=== PATIENT | female | born 1975 | race Two or more races ===

== ENCOUNTER → 2020-08-28 09:22 | Outpatient (BNVA) | payer SELFPAY | PROVIDERS: PCP Pediatrics; Visit Provider Internal Medicine ==

== ENCOUNTER 2020-10-25 06:33 | Outpatient (REF) | payer MEDICAID, SELFPAY ==
[2020-10-25 06:55] LABS: MANUAL DIFF FLAG NO
[2020-10-25 07:05] LABS: Basophils Absolute Auto 0.1 X10*3/uL (0.0-0.2); Basophils Percent Auto 0.7 % (0-2); Eosinophils Absolute Auto 0.2 X10*3/uL (0.0-0.4); Eosinophils Percent Auto 2.3 % (0-4); Hematocrit 38.4 % (37-47); Imm Gran Abs Auto 0.03 X10*3/uL (0.00-0.03); Imm Gran Pct Auto 0.4 % (0.0-0.4); Lymphocytes Absolute Auto 2.6 X10*3/uL (1.2-4.9); Lymphocytes Percent Auto 34.4 % (20-40); Mean Corpuscular HGB Conc 33.9 g/dl (31.0-35.0); Mean Corpuscular Volume 91.4 fL (80-98); Mean Platelet Volume 8.7 fL (9.4-12.3); Monocytes Absolute Auto 0.6 X10*3/uL (0.1-1.2); Monocytes Percent Auto 8.5 % (2-11); Neutrophils Percent Auto 53.7 % (45-73); Platelet Count 357 X10*3/uL (160-400); Red Cell Distribution Width 12.4 % (11.0-16.0); White Blood Count 7.5 X10*3/uL (4.8-10.8)
[2020-10-25 07:07] LABS: Prothrombin Time 11.3 SEC (10.8-13.0)
[2020-10-25 07:26] LABS: Glucose Urine UA NEG (NEG); Leukocyte Esterase Urine NEG (NEG); Nitrite Urine NEG (NEG); PH 6.5 (5.0-8.0); Specific Gravity - Urine 1.025 (1.005-1.025); Urine Blood NEG (NEG); Urine Ketones NEG (NEG); Urine Protein NEG (NEG-TRACE)
[2020-10-25 07:36] LABS: Appearance Urine HAZY; Color Urine YELLOW
[2020-10-25 07:43] LABS: Alanine Aminotransferase 26 U/L (0-31); Alkaline Phosphatase 72 U/L (39-117); Anion Gap 15 (12-20); Aspartate Amino Transferase 19 U/L (5-31); Bilirubin Direct 0.2 mg/dL (0.0-0.5); Bilirubin Total 0.7 mg/dL (0.0-1.0); Blood Urea Nitrogen 12 mg/dL (9-16); Calcium 8.8 mg/dL (8.4-10.2); Carbon Dioxide 21 mmol/L (22-29); Chloride 107 mmol/L (96-108); Cholesterol 175 mg/dL; Estimated Glomerular Filt Rate > 60; Glucose Fasting 102 mg/dL (60-99); HDL Cholesterol 49 mg/dL; LDL Cholesterol Calculated 111 mg/dl; Potassium 3.9 mmol/l (3.3-5.1); Sodium 139 mmol/L (135-145); Total Protein 6.7 g/dL (6.5-8.0); Triglycerides 75 mg/dL
[2020-10-25 07:49] LABS: Thyroid Stimulating Hormone 1.48 uIU/mL (0.32-4.0)
== END 2020-10-25 06:34 | disposition home or self-care (01) ==
LOC: HO.LAB 06:33
PROVIDERS: PCP Pediatrics; Visit Provider Student in an Organized Health Care Education/Training Program
DX: E03.9 Hypothyroidism, unspecified (principal); I10 Essential (primary) hypertension
CPT/HCPCS: 36415; 80048; 80061; 80076; 81003; 84443; 85025; 85610

== ENCOUNTER → 2020-12-04 09:37 | Outpatient (BNVA) | payer MEDICAID, SELFPAY | PROVIDERS: PCP Pediatrics; Visit Provider Surgery | DX: L76.34 Postprocedural seroma of skin and subcutaneous tissue following other procedure (principal) | CPT/HCPCS: 10160; 99202 ==

== ENCOUNTER → 2020-12-06 14:48 | Outpatient (BNVA) | payer MEDICAID, SELFPAY | PROVIDERS: PCP Pediatrics; Visit Provider Surgery | DX: L76.34 Postprocedural seroma of skin and subcutaneous tissue following other procedure (principal); Z98.890 Other specified postprocedural states | CPT/HCPCS: 99212 ==

== ENCOUNTER 2020-12-07 09:10 | Outpatient (REF) | payer MEDICAID, SELFPAY ==
--- NOTE | ~2020-12-07 | US_ITS ---
EXAMINATION: ULTRASOUND GUIDED ABDOMINAL WALL SEROMA DRAINAGE CLINICAL INFORMATION: Rodolfo ford approximately 4 weeks ago. Now presents with anterior abdominal wall pain. COMPARISON: None TECHNIQUE: Preliminary ultrasound imaging was performed. Subsequently ultrasound-guided drainage catheter placement procedure, benefits and risks were explained and written consent was obtained. Patient was placed supine on ultrasound stretcher and preliminary ultrasound imaging through lower anterior abdominal wall was obtained. An optimal site was selected along the left anterior abdomen wall and marked. The marked site was cleaned and aseptic technique. Sterile drape was placed over the cleaned area. 1% lidocaine was injected at the puncture site. Through a small skin incision a 5-Turkmen Yueh catheter was advanced under sterile ultrasound guidance into the fluid collection. After observing fluid return, stylet was withdrawn and fluid was collected in the 20 mL syringe and sent to lab. A 0.035 J-wire was advanced into the collection through the Yueh catheter and catheter removed. A 10.5-Turkmen APD catheter was then threaded over the guidewire and placed in the collection. The catheter was then connected to the suction bulb via connecting cannula. The catheter was fastened to the skin with compressive dressing. Patient tolerated procedure extremely well. FINDINGS: On preliminary ultrasound imaging there is moderate fluid collection seen deep to the skin in the deep adipose tissue extending from right to left abdomen and approximately 2 cm thick. There is anechoic fluid collection with significant septations and bands. There is a 10.5-Turkmen drain left in place connected to a suction bulb. US/US drain soft tissue w imaging IMPRESSION: Successful ultrasound-guided abdominal wall drainage catheter placement. Approximately 20 mL of fluid was collected and sent to lab for further evaluation as per physician request.
[2020-12-07] MEDS: Lidocaine HCl 1 % MPF 5 ML VIAL SUBCUT (09:52)
== END 2020-12-07 09:11 | disposition home or self-care (01) ==
LOC: HO.US 09:10
PROVIDERS: PCP Pediatrics; Visit Provider Surgery
DX: L76.34 Postprocedural seroma of skin and subcutaneous tissue following other procedure (principal); Z98.890 Other specified postprocedural states
CPT/HCPCS: 10030; 87070; 87073; 87205; Q4186

== ENCOUNTER → 2020-12-11 10:03 | Outpatient (BNVA) | payer MEDICAID, SELFPAY | PROVIDERS: PCP Pediatrics; Visit Provider Surgery | DX: L76.34 Postprocedural seroma of skin and subcutaneous tissue following other procedure (principal) | CPT/HCPCS: 99212 ==

== ENCOUNTER → 2020-12-17 10:33 | Outpatient (BNVA) | payer MEDICAID, SELFPAY | PROVIDERS: PCP Pediatrics; Visit Provider Surgery | DX: L76.34 Postprocedural seroma of skin and subcutaneous tissue following other procedure (principal) | CPT/HCPCS: 99211 ==

== ENCOUNTER → 2020-12-17 10:33 | Outpatient (BNVA) | payer MEDICAID, SELFPAY | PROVIDERS: PCP Pediatrics; Visit Provider Surgery ==

== ENCOUNTER → 2020-12-21 11:02 | Outpatient (BNVA) | payer MEDICAID, SELFPAY | PROVIDERS: PCP Pediatrics; Visit Provider Surgery | DX: L03.311 Cellulitis of abdominal wall (principal) | CPT/HCPCS: 99212 ==

== ENCOUNTER → 2020-12-26 10:34 | Outpatient (BNVA) | payer MEDICAID, SELFPAY | PROVIDERS: PCP Pediatrics; Visit Provider Surgery | DX: L03.311 Cellulitis of abdominal wall (principal) | CPT/HCPCS: 99212 ==

== ENCOUNTER 2021-02-16 07:41 | Outpatient (REF) | payer MEDICAID, SELFPAY ==
[2021-02-16 08:08] LABS: MANUAL DIFF FLAG NO
[2021-02-16 08:19] LABS: Basophils Absolute Auto 0.1 X10*3/uL (0.0-0.2); Basophils Percent Auto 0.6 % (0-2); Eosinophils Absolute Auto 0.2 X10*3/uL (0.0-0.4); Hematocrit 39.6 % (37-47); Hemoglobin 12.9 g/dl (12.0-16.0); Imm Gran Abs Auto 0.01 X10*3/uL (0.00-0.03); Imm Gran Pct Auto 0.1 % (0.0-0.4); Lymphocytes Absolute Auto 2.9 X10*3/uL (1.2-4.9); Mean Corpuscular HGB Conc 32.6 g/dl (31.0-35.0); Mean Corpuscular Hemoglobin 29.3 pg (27.0-33.0); Mean Corpuscular Volume 89.8 fL (80-98); Monocytes Absolute Auto 0.6 X10*3/uL (0.1-1.2); Monocytes Percent Auto 7.3 % (2-11); Neutrophils Absolute Auto 4.1 X10*3/uL (2.0-8.3); Platelet Count 365 X10*3/uL (160-400); Red Blood Count 4.41 X10*6/uL (4.20-5.50); Red Cell Distribution Width 12.7 % (11.0-16.0); White Blood Count 7.8 X10*3/uL (4.8-10.8)
[2021-02-16 08:35] LABS: Iron 60 mcg/dL (30-160); Percent Iron Saturation 16 % (15-50); Total Iron Binding Capacity 366 mcg/dL (228-428); Unsaturated Iron Binding 306 ug/dL
[2021-02-16 08:57] LABS: Thyroid Stimulating Hormone 0.72 uIU/mL (0.32-4.0)
== END 2021-02-16 07:42 | disposition home or self-care (01) ==
LOC: HO.LAB 07:41
PROVIDERS: Absent Provider Pediatrics; PCP Pediatrics; Visit Provider Internal Medicine
DX: G25.81 Restless legs syndrome (principal)
CPT/HCPCS: 36415; 83540; 84443; 85025

== ENCOUNTER 2021-07-04 10:14 | Outpatient (REF) | payer MEDICAID, SELFPAY ==
--- NOTE | ~2021-07-04 | MM_ITS ---
EXAMINATION: MM SCREENING DIGITAL BREAST TOMOSYNTHESIS, BILATERAL CLINICAL INFORMATION: Screening. Asymptomatic. Bilateral implants December 2020. Right ultrasound-guided biopsy 06/29/2019 (fibroadenoma). The lifetime risk of breast cancer based on the Tyrer-Cuzick Model is 17%. COMPARISON: Mammography: 06/20/2020, 06/29/2019 TECHNIQUE: Digital mammography is performed in craniocaudal and mediolateral oblique views along with computer-aided detection (CAD). Digital breast tomosynthesis is performed in implant-displaced craniocaudal and implant-displaced mediolateral oblique views along with computer-aided detection (CAD). Synthesized 2D images are generated from the tomosynthesis. FINDINGS: There are scattered areas of fibroglandular density (ACR BI-RADS breast composition Category b). New bilateral implants are now present. The implant contours are smooth. Parenchymal pattern is similar to prior exam. There is biopsy clip marker overlying a stable circumscribed mass approximately 2.5 cm upper outer right breast, consistent with known fibroadenoma. There is no interval significant mass or architectural abnormality or abnormal calcifications. The axilla are unremarkable. No significant changes. MM/MM tomosynthesis screen imp BI IMPRESSION: 1. New bilateral implants. 2. Known fibroadenoma upper outer right breast with biopsy clip marker. 3. No mammographic evidence of malignancy. ASSESSMENT: BI-RADS 2: Benign RECOMMENDATION: Routine annual mammography screening. This patient's information was entered into a reminder system with a target due date for their next mammogram.
== END 2021-07-04 10:15 | disposition home or self-care (01) ==
LOC: HO.MAMMO 10:14
PROVIDERS: PCP Pediatrics; Visit Provider Pediatrics
DX: Z12.31 Encounter for screening mammogram for malignant neoplasm of breast (principal)
CPT/HCPCS: 77063; 77067

== ENCOUNTER 2021-07-30 07:50 | Outpatient (REF) | payer MEDICAID, SELFPAY ==
[2021-07-30 08:16] LABS: MANUAL DIFF FLAG NO
[2021-07-30 08:43] LABS: Basophils Absolute Auto 0.1 X10*3/uL (0.0-0.2); Basophils Percent Auto 0.6 % (0-2); Eosinophils Absolute Auto 0.2 X10*3/uL (0.0-0.4); Eosinophils Percent Auto 2.3 % (0-4); Hematocrit 40.9 % (37.0-47.0); Hemoglobin 13.7 g/dl (12.0-16.0); Imm Gran Abs Auto 0.02 X10*3/uL (0.00-0.03); Imm Gran Pct Auto 0.3 % (0.0-0.4); Lymphocytes Absolute Auto 2.7 X10*3/uL (1.2-4.9); Lymphocytes Percent Auto 33.7 % (20-40); Mean Corpuscular HGB Conc 33.5 g/dl (31.0-35.0); Mean Corpuscular Hemoglobin 30.7 pg (27.0-33.0); Mean Corpuscular Volume 91.7 fL (80.0-98.0); Mean Platelet Volume 9.2 fL (9.4-12.3); Monocytes Absolute Auto 0.6 X10*3/uL (0.1-1.2); Monocytes Percent Auto 8.1 % (2-11); Neutrophils Absolute Auto 4.32 x10*3/uL (2.0-8.3); Platelet Count 422 X10*3/uL (160-400); Red Blood Count 4.46 X10*6/uL (4.20-5.50); Red Cell Distribution Width 12.6 % (11.0-16.0); White Blood Count 7.9 X10*3/uL (4.8-10.8)
[2021-07-30 09:24] LABS: Alanine Aminotransferase 16 U/L (0-31); Albumin Level 4.2 g/dL (3.5-5.0); Alkaline Phosphatase 72 U/L (39-117); Anion Gap 9 (12-20); Aspartate Amino Transferase 20 U/L (5-31); Bilirubin Total 0.6 mg/dL (0.0-1.0); Blood Urea Nitrogen 13 mg/dL (9-16); Calcium 9.1 mg/dL (8.4-10.2); Carbon Dioxide 29 mmol/L (22-29); Chloride 105 mmol/L (96-108); Cholesterol 195 mg/dL; Estimated Glomerular Filt Rate > 60; Glucose Random 99 mg/dL (60-115); HDL Cholesterol 58 mg/dL; LDL Cholesterol Calculated 125 mg/dl; Potassium 4.1 mmol/L (3.3-5.1); Sodium 139 mmol/L (135-145); Triglycerides 62 mg/dL
[2021-07-30 09:28] LABS: Estimated Average Glucose 105 mg/dL; Hemoglobin A1c % 5.3 %
[2021-07-30 09:35] LABS: T4 Thyroxine 7.9 ug/dL (4.5-12.0); Thyroid Stimulating Hormone 3.19 uIU/mL (0.32-4.0); Vitamin D 25-OH Total 33.6 ng/mL (>30)
[2021-07-30 10:06] LABS: Creatinine Urine 142.78 mg/dL; Microalbum/Creatinine Ratio Ur 9.8 ug/mg cr
[2021-07-30 19:17] LABS: Vitamin B12 581 pg/mL (200-900)
[2021-07-31 20:26] LABS: Triiodothyronine T3 Total 87 ng/dL (76-181)
== END 2021-07-30 07:51 | disposition home or self-care (01) ==
LOC: HO.LAB 07:50
PROVIDERS: PCP Pediatrics; Visit Provider Pediatrics
DX: E03.9 Hypothyroidism, unspecified (principal); E73.9 Lactose intolerance, unspecified; I10 Essential (primary) hypertension
CPT/HCPCS: 36415; 80053; 80061; 82043; 82306; 82607; 83036; 84436; 84443; 84480; 85025

== ENCOUNTER 2021-07-31 09:35 | Outpatient (REF) | payer MEDICAID, SELFPAY ==
--- NOTE | ~2021-07-31 | US_ITS ---
EXAMINATION: ULTRASOUND EXTREMITY NONVASCULAR CLINICAL INFORMATION: Left lower limb swelling. Mass/lump. COMPARISON: None TECHNIQUE: Targeted sonographic evaluation of the region of concern at the left superior thigh. FINDINGS: There is an ovoid lesion measuring 3.4 x 5.6 x 0.8 cm superficially in the area of concern. The overall echogenicity of this lesion is similar to fat. Margins are somewhat ill-defined. Centrally within this lesion there is a complex cystic area which measures 0.7 x 0.6 x 0.9 cm. There is no vascularity on Doppler imaging associated with any of these findings. US/US extremity nonvascular daniels IMPRESSION: Ovoid lesion in the region of concern superficially with echogenicity similar to fat. Central area of complex cystic appearance. This is nonspecific and may represent a nonspecific lipomatous lesion. The ill-defined margins and central irregularity are not typical for lipoma. Recommend further evaluation with MRI.
== END 2021-07-31 09:36 | disposition home or self-care (01) ==
LOC: HO.HMGCX 09:35
PROVIDERS: PCP Pediatrics; Visit Provider Pediatrics
DX: R22.42 Localized swelling, mass and lump, left lower limb (principal)
CPT/HCPCS: 76882

== ENCOUNTER 2021-08-21 11:16 | Outpatient (REF) | payer MEDICAID, SELFPAY ==
--- NOTE | ~2021-08-21 | MR_ITS ---
EXAMINATION: MR HIP WITHOUT AND WITH CONTRAST, LEFT CLINICAL INFORMATION: Palpable lump left hip COMPARISON: Previous left lower extremity soft tissue ultrasound 07/31/2021 TECHNIQUE: MRI of the left hip was performed before and after the intravenous administration of 8.5 mL Gadavist on a high-field scanner. FINDINGS: The hip joints are normal-appearing. No soft tissue mass is seen. Bones of the pelvis are normal. There are degenerative disc changes of the lower lumbar spine. There is diverticulosis of the colon. There are nabothian cysts in the cervix. The bladder is unremarkable. No ascites or adenopathy is seen. No hernia is seen. There are postsurgical changes to the lower anterior abdominal wall. MR/MR hip LT wo/w con IMPRESSION: No soft tissue mass seen.
== END 2021-08-21 11:17 | disposition home or self-care (01) ==
LOC: HO.MRI 11:16
PROVIDERS: Visit Provider Pediatrics
DX: R22.42 Localized swelling, mass and lump, left lower limb (principal)
CPT/HCPCS: 73723; A9585

== ENCOUNTER 2022-01-22 11:17 | Outpatient (REF) | payer MEDICAID, SELFPAY ==
--- NOTE | ~2022-01-22 | US_ITS ---
EXAMINATION: US PELVIS CLINICAL INFORMATION: Irregular menses. COMPARISON: Ultrasound pelvis 09/14/2019. TECHNIQUE: Ultrasound of the pelvis is performed using both transabdominal and transvaginal transducers along with Doppler. Transvaginal imaging is performed due to inadequate visualization transabdominally. FINDINGS: Uterus: The uterus is anteverted and measures 8.7 x 4.4 x 6.4 cm. The double wall endometrial thickness is 0.2 cm. The uterus is smooth in contour and has normal myometrial echogenicity. There are 2 hypoechoic lesions consistent with fibroids. 1. Lesion right fundus measures 1.9 x 1.1 x 1.8 cm. Previously, it measured 1.1 x 0.8 x 0.8 cm. 2. Lesion in the left anterior upper body of the uterus measures 1.3 x 1.3 x 1.1 cm. Previously, it was not visualized. There are several anechoic nabothian cysts in the cervix. Adnexa: Both ovaries are visualized. There is normal color-flow to the adnexa. There is no ovarian torsion. There is no pelvic ascites or fluid collection. Right ovary measures 3.1 x 1.5 x 1.6 cm and volume 3.9 mL. There is a dominant follicle measuring 0.8 x 0.9 x 0.8 cm. Previously, the right ovary measured 3.4 x 2.2 x 2.7 cm. Left ovary measures 2.9 x 2.8 x 1.8 cm and volume 7.7 mL. It appears unremarkable. Previously, the left ovary measured 2.7 x 2.2 x 2.7 cm. US/US pelvic and transvaginal IMPRESSION: Small dominant right ovarian follicle. Otherwise, both ovaries are unremarkable. Two uterine fibroids. The fundal fibroid is unchanged to last study.
== END 2022-01-22 11:18 | disposition home or self-care (01) ==
LOC: HO.US 11:17
PROVIDERS: PCP Pediatrics; Visit Provider Student in an Organized Health Care Education/Training Program
DX: N92.6 Irregular menstruation, unspecified (principal)
CPT/HCPCS: 76830; 76856

== ENCOUNTER 2022-02-13 10:57 | Outpatient (REF) | payer MEDICAID, SELFPAY ==
--- NOTE | ~2022-02-13 | MM_ITS ---
EXAMINATION: MM DIAGNOSTIC DIGITAL BREAST TOMOSYNTHESIS, BILATERAL US DIAGNOSTIC ULTRASOUND BREAST, LEFT CLINICAL INFORMATION: Subtle fullness left axilla. No erythema. History benign right ultrasound-guided biopsy 06/29/2019 (fibroadenoma). The lifetime risk of breast cancer based on the Tyrer-Cuzick Model is 19%. COMPARISON: Mammography: 07/04/2021, 06/20/2020, 06/29/2019, 06/15/2019. TECHNIQUE: Digital mammography is performed in craniocaudal and mediolateral oblique views. Digital breast tomosynthesis is performed in implant-displaced craniocaudal and implant-displaced mediolateral oblique views. Synthesized 2D images are generated from the tomosynthesis. Computer-aided detection (CAD) is performed for this exam. Ultrasound posterior upper outer left breast and axilla is performed using grayscale imaging and color Doppler without and with harmonics. FINDINGS: There are scattered areas of fibroglandular density (ACR BI-RADS breast composition Category b). There are bilateral implants. The implant contours are smooth. Parenchymal pattern is similar to prior studies. There is no interval mass or architectural abnormality or developing density. There is a mass upper outer right breast with biopsy clip marker corresponding to the known fibroadenoma. There is no skin thickening or coarsening of the Bubba's ligaments. The axilla are unremarkable. Ultrasound demonstrates no cystic or solid mass or architectural abnormality. No adenopathy. No skin thickening or edema tracking in soft tissue planes. Results are discussed with the patient at time of visit. MM/MM tomosynthesis diag imp BI IMPRESSION: -No mammographic evidence of malignancy. -Unremarkable targeted left breast and axillary ultrasound. No adenopathy. ASSESSMENT: BI-RADS 1: Negative RECOMMENDATION: 1. Patient should be managed based on the clinical impression. 2. Otherwise, routine annual screening mammography. This patient's information was entered into a reminder system with a target due date for their next mammogram.
== END 2022-02-13 10:58 | disposition home or self-care (01) ==
LOC: HO.MAMMO 10:57
PROVIDERS: PCP Pediatrics; Visit Provider Pediatrics
DX: N63.32 Unspecified lump in axillary tail of the left breast (principal); R22.32 Localized swelling, mass and lump, left upper limb
CPT/HCPCS: 76642; 77062; 77066

== ENCOUNTER 2022-03-14 09:16 | Outpatient (REF) | payer MEDICAID, SELFPAY ==
[2022-03-14 10:55] LABS: Anion Gap 10 (12-20); Blood Urea Nitrogen 14 mg/dL (9-16); Calcium 8.8 mg/dL (8.4-10.2); Carbon Dioxide 28 mmol/L (22-29); Chloride 105 mmol/L (96-108); Estimated Glomerular Filt Rate > 60; Glucose Random 84 mg/dL (60-115); Potassium 3.6 mmol/L (3.3-5.1); Sodium 139 mmol/L (135-145)
[2022-03-14 11:21] LABS: Thyroid Stimulating Hormone 4.22 uIU/mL (0.32-4.0)
[2022-03-14 11:30] LABS: T4 Thyroxine 7.2 ug/dL (4.5-12.0)
[2022-03-14 12:00] LABS: Creatinine Urine 227.19 mg/dL; Microalbum/Creatinine Ratio Ur 12.3 ug/mg cr
[2022-03-16 20:12] LABS: Triiodothyronine T3 Total 83 ng/dL (76-181)
== END 2022-03-14 09:17 | disposition home or self-care (01) ==
LOC: HO.LAB 09:16
PROVIDERS: PCP Pediatrics; Visit Provider Pediatrics
DX: E03.9 Hypothyroidism, unspecified (principal); I10 Essential (primary) hypertension
CPT/HCPCS: 36415; 80048; 82043; 84436; 84443; 84480

== ENCOUNTER 2022-04-01 08:21 | Outpatient (REF) | payer MEDICAID, SELFPAY ==
[2022-04-01 09:18] LABS: Hematocrit 40.9 % (37.0-47.0); Hemoglobin 13.3 g/dl (12.0-16.0); Mean Corpuscular HGB Conc 32.5 g/dl (31.0-35.0); Mean Corpuscular Hemoglobin 30.4 pg (27.0-33.0); Mean Corpuscular Volume 93.4 fL (80.0-98.0); Mean Platelet Volume 8.9 fL (9.4-12.3); Platelet Count 359 X10*3/uL (160-400); Red Blood Count 4.38 X10*6/uL (4.20-5.50); Red Cell Distribution Width 12.9 % (11.0-16.0); White Blood Count 8.2 X10*3/uL (4.8-10.8)
[2022-04-01 09:57] LABS: TSH reflex Free T4 3.77 uIU/mL (0.32-4.0)
[2022-04-01 15:45] LABS: CT PCR NOT DETECTED (Not Detect.); NG PCR NOT DETECTED (Not Detect.)
[2022-04-04 07:06] LABS: HPV mRNA E6/E7 rflx Not Detected (Not Detected)
== END 2022-04-01 08:22 | disposition home or self-care (01) ==
LOC: HO.LAB 08:21
PROVIDERS: PCP Pediatrics; Visit Provider Obstetrics & Gynecology
DX: Z12.4 Encounter for screening for malignant neoplasm of cervix (principal); Z11.51 Encounter for screening for human papillomavirus (HPV); N93.9 Abnormal uterine and vaginal bleeding, unspecified
CPT/HCPCS: 36415; 84443; 85027; 87491; 87591; 87624; 88142; 99202

== ENCOUNTER 2022-04-29 09:57 | Outpatient (REF) | payer MEDICAID, SELFPAY | END 2022-04-29 09:58 | disposition home or self-care (01) | LOC: HO.LAB 09:57 | PROVIDERS: PCP Pediatrics; Visit Provider Obstetrics & Gynecology | DX: Z32.02 Encounter for pregnancy test, result negative (principal); N93.9 Abnormal uterine and vaginal bleeding, unspecified | CPT/HCPCS: 58100; 81025; 88305 ==

== ENCOUNTER → 2022-05-14 11:47 | Outpatient (BNVA) | payer MEDICAID, SELFPAY | PROVIDERS: Visit Provider Obstetrics & Gynecology | DX: N93.9 Abnormal uterine and vaginal bleeding, unspecified (principal); D25.9 Leiomyoma of uterus, unspecified | CPT/HCPCS: 99212 ==

== ENCOUNTER → 2022-05-29 14:15 | Outpatient (BNVA) | payer MEDICAID, SELFPAY | PROVIDERS: Visit Provider Obstetrics & Gynecology | DX: Z30.430 Encounter for insertion of intrauterine contraceptive device (principal) | CPT/HCPCS: 58300; J7298 ==

== ENCOUNTER → 2022-06-25 11:01 | Outpatient (BNVA) | payer MEDICAID, SELFPAY | PROVIDERS: Visit Provider Obstetrics & Gynecology | DX: Z30.431 Encounter for routine checking of intrauterine contraceptive device (principal); Z32.02 Encounter for pregnancy test, result negative | CPT/HCPCS: 81025; 99212 ==

== ENCOUNTER 2022-07-01 06:14 | Outpatient (REF) | payer MEDICAID, SELFPAY ==
--- NOTE | ~2022-07-01 | XR_ITS ---
EXAMINATION: XR CHEST CLINICAL INFORMATION: Preprocedure COMPARISON: Previous chest x-ray September 2019 TECHNIQUE: 2 views of the chest were obtained. FINDINGS: No significant abnormality is noted involving the heart, lungs, mediastinum, bony thorax or soft tissues. XR/XR chest 2V IMPRESSION: Unremarkable examination.
[2022-07-01 06:34] LABS: MANUAL DIFF FLAG NO
[2022-07-01 07:36] LABS: Basophils Absolute Auto 0.1 X10*3/uL (0.0-0.2); Basophils Percent Auto 0.7 % (0-2); Eosinophils Absolute Auto 0.2 X10*3/uL (0.0-0.4); Eosinophils Percent Auto 1.8 % (0-4); Hematocrit 40.6 % (37.0-47.0); Hemoglobin 13.7 g/dl (12.0-16.0); Imm Gran Abs Auto 0.07 X10*3/uL (0.00-0.03); Imm Gran Pct Auto 0.7 % (0.0-0.4); Lymphocytes Absolute Auto 2.4 X10*3/uL (1.2-4.9); Lymphocytes Percent Auto 23.5 % (20-40); Mean Corpuscular HGB Conc 33.7 g/dl (31.0-35.0); Mean Corpuscular Hemoglobin 31.2 pg (27.0-33.0); Mean Corpuscular Volume 92.5 fL (80.0-98.0); Mean Platelet Volume 9.1 fL (9.4-12.3); Monocytes Absolute Auto 0.9 X10*3/uL (0.1-1.2); Monocytes Percent Auto 8.6 % (2-11); Neutrophils Absolute Auto 6.7 x10*3/uL (2.0-8.3); Neutrophils Percent Auto 64.7 % (45-73); Platelet Count 348 X10*3/uL (160-400); Red Blood Count 4.39 X10*6/uL (4.20-5.50); Red Cell Distribution Width 12.8 % (11.0-16.0); White Blood Count 10.3 X10*3/uL (4.8-10.8)
[2022-07-01 07:54] LABS: INTERNATIONAL NORM RATIO 0.9 (0.9-1.1); Prothrombin Time 10.4 SEC (10.0-13.1)
[2022-07-01 07:57] LABS: Partial Thromboplastin Time 29.6 SEC (26.0-36.4)
[2022-07-01 08:31] LABS: Anion Gap 17 (12-20); Blood Urea Nitrogen 16 mg/dL (9-16); Carbon Dioxide 25 mmol/L (22-29); Chloride 102 mmol/L (96-108); Estimated Glomerular Filt Rate > 60; Glucose Random 100 mg/dL (60-115); Rheumatoid Factor < 15.0 IU/mL (<15.0); Sodium 140 mmol/L (135-145)
[2022-07-01 08:35] LABS: HCG Quantitative < 2 mIU/mL; Thyroid Stimulating Hormone 0.82 uIU/mL (0.32-4.0)
== END 2022-07-01 06:15 | disposition home or self-care (01) ==
LOC: HO.XRAY 06:14
PROVIDERS: Absent Provider Pediatrics; PCP Pediatrics; Visit Provider Internal Medicine
DX: Z01.818 Encounter for other preprocedural examination (principal)
CPT/HCPCS: 36415; 71046; 80048; 84443; 84702; 85025; 85610; 85730; 86431; 86900; 86901

== ENCOUNTER → 2022-07-09 06:56 | Outpatient (REF) | payer MEDICAID, SELFPAY ==
--- NOTE | 2022-07-09 07:01 | CA_ITS ---
Transthoracic Echocardiogram Patient (Last, First, Middle): Stacey Dasilva R Gender: Female Date of : 1975 Age: 47 Procedure Date: 07/09/2022 Procedure Type: Transthoracic Echocardiogram Location: OP Height: 162.56 cm Weight: 78.47 kg BSA: 1.84 m2 Heart Rate: 66 bpm BP: 120 / 80 mmHg Information Technology Assistant: CEDRIC Referring MD: Carrie Walters MD Symptoms: RVH FOUND ON EKG, PRE OP EVALUATION Study Quality: Fair ECG Rhythm: Sinus Conclusions: - The left ventricular systolic function is normal. The calculated ejection fraction is 56% by biplane method. - No obvious valvular pathology seen on this study. Findings Left Ventricle Normal left ventricular cavity size. There is mildly increased left ventricular wall thickness. The left ventricular systolic function is normal. The calculated ejection fraction is 56% by biplane method. There is no evidence of regional wall motion abnormalities. Diastolic function is normal for age. Right Ventricle Normal right ventricular cavity size and systolic function. Atria Both atria are normal in size. Aortic Valve There is a normal trileaflet aortic valve. There is no aortic valve stenosis. There is no aortic valve regurgitation. Mitral Valve The mitral valve appears normal. There is no mitral valve regurgitation. There is no mitral valve stenosis. Pulmonic Valve The pulmonic valve is likely normal. Tricuspid Valve Normal tricuspid valve structure. There is no tricuspid valve regurgitation. There is no evidence of pulmonary hypertension. Great Vessels The asc aorta is normal in size. Venous The inferior vena cava is normal in size and collapses greater than 50% with inspiration. Pericardium/Pleural There is no evidence of pericardial effusion. Prior Study Comparison No significant change compared to prior study dated: 02/06/2012. Recommendations, Care & Conclusions No obvious valvular pathology seen on this study. Measurements 2D Linear Measurements IVSd: 1.12 0.6-0.9/0.6-1.0 cm LVIDd: 3.56 3.9-5.3/4.2-5.9 cm LVIDd Index: 1.93 2.4-3.2/2.2-3.1 cm/m2 LVIDs: 1.93 2.0-3.6 cm LVPWd: 1.04 0.7-1.1 cm LA Diam: 2.60 2.7-3.8/3.0-4.0 cm LAIDs Index: 1.41 1.5-2.3 cm/m2 LV Mass: 147.71 67-162/88-224 g LV Mass Index: 80.28 43-95/49-115 g/m2 LVOT Diam: 1.80 3.0+(-)1.3 cm 2D Systolic Function EF 4C: 61.30 >55% EF 2C: 57.10 >55% EF BiP: 56.40 >55% Mitral Valve MV Pk E: 0.67 MV PK A: 0.73 MV Decel Time: 215.00 E/A: 0.90 E'Lateral: 11.30 E'Medial: 8.38 E/E' Med: 7.90 E/E' Lat: 5.90 PHT: 63.00 MVA PHT: 3.49 Decel Washburn: 3.09 Aortic Valve AoV Pk Morgan: 1.24 AoV Mn Morgan: 0.85 AoV VTI: 0.24 AoV Pk Grad: 6.00 Aov Mn Grad: 3.00 MICHAEL Cont.VTI: 2.28 LVOT LVOT Pk Morgan: 1.01 LVOT Mn Morgan: 0.73 LVOT VTI: 0.22 LVOT Pk Grad: 4.00 LVOT Mn Grad: 2.00 LVOT Diam: 1.80 LVOT Area: 2.54 Diastolic Function MV Pk E: 0.67 MV Pk A: 0.73 E/A: 0.90 E'Medial: 8.38 E/E' Med: 7.90 E' Laterial: 11.30 E/E' Lat: 5.90 Right Ventricle TAPSE (mm): 2.00 TVS' Morgan: 12.60 Tricuspid Valve RA Press: 3.00 Great Vessels Aorta Sinus of Valsalva: 3.10 2.0-3.5 cm Ao Asc: 3.10 2.1-3.4 cm Pulmonary Valve PV Pk Morgan: 1.09 Peak PV Grad: 5.00 Updated in Other Vendor System with Status of Final Jeovanny Simon MD electronically signed on 07/09/2022 11:15:08 AM with status of Final
== END ==
LOC: HO.CARD 06:56
PROVIDERS: PCP Pediatrics; Visit Provider Internal Medicine
DX: Z01.818 Encounter for other preprocedural examination (principal)
CPT/HCPCS: 93306

== ENCOUNTER 2022-11-19 08:32 | Outpatient (REF) | payer MEDICAID, SELFPAY ==
--- NOTE | ~2022-11-19 | CT_ITS ---
EXAMINATION: CT ABDOMEN AND PELVIS WITH CONTRAST CLINICAL INFORMATION: Left lower quadrant pain COMPARISON: Previous CT of the abdomen and pelvis July 2016 and pelvic ultrasound December 2021 TECHNIQUE: Multidetector volumetric images were obtained from the superior aspect of the liver through the pubic symphysis following administration 85 mL of Omnipaque 350 intravenous contrast. Sagittal and coronal reformatted images were obtained on the technologist's workstation. Oral contrast: Yes This CT examination was performed using dose optimization techniques as appropriate, variously including the following: *Automated exposure control *Adjustment of mA and/or kV according to patient size (this includes techniques or standardized protocols for targeted exams where dose is matched to indication/reason for exam; i.e. extremities or head) *Use of iterative reconstruction technique DLP: 429 mGy-cm FINDINGS: LUNG BASES: The visualized lung bases are clear. There are bilateral breast implants. LIVER, GALLBLADDER, AND BILIARY TREE: The liver is normal in size, shape, and attenuation. No focal hepatic lesion or biliary ductal dilatation is present. The gallbladder is unremarkable with no evidence of radiopaque gallstones, gallbladder wall thickening, or obvious pericholecystic inflammatory changes. PANCREAS: Unremarkable. SPLEEN: Unremarkable. ADRENAL GLANDS: 2 x 3 cm right adrenal lesion. Hounsfield units postcontrast measure 74 indeterminate. This is similar in size to prior exams. The left adrenal gland is normal. KIDNEYS AND URETERS: The kidneys are normal in size, shape, and attenuation. No hydronephrosis, hydroureter, or calculi seen. No perinephric stranding. BLADDER: Unremarkable. GASTROINTESTINAL TRACT: Mild diverticulosis of the colon. The small and large bowel are otherwise unremarkable. The appendix is unremarkable. ABDOMINAL WALL: No significant hernia is appreciated. Postsurgical changes to the anterior abdominal wall. LYMPH NODES: Normal. VASCULAR: Unremarkable. PELVIC VISCERA: There is an IUD in the uterus. This appears low in position in the lower uterine segment and cervix. The uterus is heterogeneous in attenuation probably representing fibroids. There is a 4 cm left adnexal cyst. According to the practice recommendation and based on patient age, no follow-up needed. OSSEOUS STRUCTURES: Degenerative disc disease at L5-S1. CT/CT abdomen pelvis w IV con IMPRESSION: Low position in of the IUD in the lower uterine segment and cervix. 4 cm left ovarian cyst. Stable right adrenal lesion. Mild diverticulosis. Fleischner guidelines were followed.
[2022-11-19] MEDS: iohexoL 350 MG/ML 100 ML INFUS..BTL IV (11:24)
[2022-11-19] MEDS: Barium Sulfate Oral (Berry) 450 ML ORAL.SUSP 900 ML PO (11:25)
== END 2022-11-19 08:33 | disposition home or self-care (01) ==
LOC: HO.CT 08:32
PROVIDERS: Visit Provider Family Medicine
DX: R10.32 Left lower quadrant pain (principal)
CPT/HCPCS: 74177; Q9967

== ENCOUNTER 2022-12-01 09:50 | Outpatient (REF) | payer MEDICAID, SELFPAY | END 2022-12-01 09:51 | disposition home or self-care (01) | LOC: HO.LNP 09:50 | PROVIDERS: PCP Pediatrics; Visit Provider Obstetrics & Gynecology | DX: T83.82XA Fibrosis due to genitourinary prosthetic devices, implants and grafts, initial encounter (principal); N93.9 Abnormal uterine and vaginal bleeding, unspecified; D21.9 Benign neoplasm of connective and other soft tissue, unspecified | CPT/HCPCS: 36415; 58100; 58301; 84439; 84443; 84702; 85027; 88305; 99212 ==

== ENCOUNTER 2022-12-01 10:42 | Outpatient (REF) | payer MEDICAID, SELFPAY ==
[2022-12-01 12:04] LABS: Hematocrit 41.6 % (37.0-47.0); Hemoglobin 14.2 g/dl (12.0-16.0); Mean Corpuscular HGB Conc 34.1 g/dl (31.0-35.0); Mean Corpuscular Hemoglobin 30.5 pg (27.0-33.0); Mean Corpuscular Volume 89.5 fL (80.0-98.0); Mean Platelet Volume 9.4 fL (9.4-12.3); Platelet Count 363 X10*3/uL (160-400); Red Blood Count 4.65 X10*6/uL (4.20-5.50); Red Cell Distribution Width 12.2 % (11.0-16.0); White Blood Count 7.8 X10*3/uL (4.8-10.8)
[2022-12-01 13:07] LABS: HCG Quantitative < 2 mIU/mL; TSH reflex Free T4 0.18 uIU/mL (0.32-4.0)
[2022-12-01 13:48] LABS: Free T4 (Free Thyroxine) 1.35 ng/dL (0.71-1.85)
== END 2022-12-01 10:43 | disposition home or self-care (01) ==
LOC: HO.LAB 10:42
PROVIDERS: PCP Pediatrics; Visit Provider Obstetrics & Gynecology
DX: N93.9 Abnormal uterine and vaginal bleeding, unspecified (principal)
CPT/HCPCS: 36415; 84439; 84443; 84702; 85027

== ENCOUNTER 2022-12-17 11:31 | Outpatient (REF) | payer MEDICAID, SELFPAY | END 2022-12-17 11:32 | disposition home or self-care (01) | LOC: HO.US 11:31 | PROVIDERS: PCP Pediatrics; Visit Provider Obstetrics & Gynecology | DX: Z13.89 Encounter for screening for other disorder (principal) ==

== ENCOUNTER 2022-12-22 14:17 | Outpatient (REF) | payer MEDICAID, SELFPAY ==
--- NOTE | ~2022-12-22 | MM_ITS ---
EXAMINATION: MM DIAGNOSTIC DIGITAL BREAST TOMOSYNTHESIS, BILATERAL US DIAGNOSTIC ULTRASOUND BREAST, RIGHT CLINICAL INFORMATION: Due for yearly. Palpable mass right breast noted by patient in the area of prior benign biopsy (fibroadenoma, 2019). Family history breast cancer mother, maternal aunt. The lifetime risk of breast cancer based on the Tyrer-Cuzick Model is 17%. COMPARISON: Prior mammography exams, most recent 02/13/2022, ultrasound-guided right breast biopsy 06/29/2019, ultrasound right breast 06/20/2019. TECHNIQUE: Digital mammography is performed in craniocaudal and mediolateral oblique views. Digital breast tomosynthesis is performed in implant-displaced craniocaudal and implant-displaced mediolateral oblique views. Synthesized 2D images are generated from the tomosynthesis. Computer-aided detection (CAD) is performed for this exam. Ultrasound right breast is targeted to the area of clinical concern. Grayscale imaging and color Doppler are performed without and with harmonics. FINDINGS: There are scattered areas of fibroglandular density (ACR BI-RADS breast composition Category b). Parenchymal pattern is similar to prior exams. There is no interval mass or architectural abnormality or developing density. There is a biopsy clip marker anterior upper outer right breast overlying biopsy-proven fibroadenoma and also corresponding to the area of palpable concern. No abnormal calcifications. There are bilateral implants with smooth contours, similar to prior mammography. The axilla are unremarkable. The skin contours are smooth. There is no skin thickening or coarsening of the stromal markings. Ultrasound right breast demonstrates macrolobulated oval solid circumscribed mass (biopsy proven fibroadenoma) with a specular echo consistent with the biopsy clip marker. Dimensions are similar to prior ultrasound 06/29/2019. Current measurements are 2.5 x 1.3 x 2.2 cm. Prior measurements are 2.4 x 1.2 x 1.9 cm. This also corresponds to the site of patient's clinical palpable finding. There is no other cystic or solid mass or architectural abnormality in this area. No skin thickening or edema tracking in soft tissue planes. Results are discussed with the patient at time of visit. Genetic testing also discussed as well as adjunct screening with breast MRI if clinically indicated. Patient notes upcoming outside appointment with surgical oncology. MM/MM tomosynthesis diag imp BI IMPRESSION: -No significant change in mammographic pattern when compared with prior study. -Palpable concern corresponds to the biopsy-proven fibroadenoma upper outer breast, 2.5 x 1.3 x 2.2 cm (prior measurements 06/20/2019: 2.4 x 1.2 x 1.9 cm). ASSESSMENT: BI-RADS 2: Benign RECOMMENDATION: 1. Patient should be managed based on the clinical impression. 2. Additional adjunct screening with breast MRI as clinical risk factors warrant. 3. Otherwise, routine annual screening mammography. This patient's information was entered into a reminder system with a target due date for their next mammogram.
== END 2022-12-22 14:18 | disposition home or self-care (01) ==
LOC: HO.MAMMO 14:17
PROVIDERS: PCP Pediatrics; Visit Provider Pediatrics
DX: N63.11 Unspecified lump in the right breast, upper outer quadrant (principal)
CPT/HCPCS: 76642; 77062; 77066

== ENCOUNTER 2022-12-26 16:17 | Outpatient (REF) | payer MEDICAID, SELFPAY ==
--- NOTE | ~2022-12-26 | US_ITS ---
EXAMINATION: US PELVIS COMPLETE CLINICAL INFORMATION: Abnormal uterine bleeding COMPARISON: Pelvic ultrasound 01/22/2022 TECHNIQUE: Transabdominal and transvaginal imaging was performed. FINDINGS: The uterus is of normal size and echogenicity measuring 10.0 x 4.3 x 6.1 cm. Uterus is anteverted and retroflexed in position. A regular homogeneous endometrium is identified measuring 0.7 cm. Nabothian cysts in the cervix. Small amount of fluid is noted within the endocervical canal. Both ovaries are of normal size and echogenicity. The right measures 2.4 x 1.3 x 1.5 cm for a volume of 2.5 mL. The left measures 4.4 x 1.9 x 1.7 cm for a volume of 7.4 mL. There is no pelvic free fluid. US/US pelvic and transvaginal IMPRESSION: Nabothian cysts and small amount of fluid is noted within the endocervical canal. Otherwise unremarkable pelvic ultrasound.
== END 2022-12-26 16:18 | disposition home or self-care (01) ==
LOC: HO.US 16:17
PROVIDERS: PCP Pediatrics; Visit Provider Obstetrics & Gynecology
DX: N93.9 Abnormal uterine and vaginal bleeding, unspecified (principal)
CPT/HCPCS: 76830; 76856

== ENCOUNTER → 2023-02-10 10:01 | Outpatient (BNVA) | payer MEDICAID, SELFPAY | PROVIDERS: PCP Pediatrics; Visit Provider Obstetrics & Gynecology | DX: N93.9 Abnormal uterine and vaginal bleeding, unspecified (principal); Z30.432 Encounter for removal of intrauterine contraceptive device | CPT/HCPCS: 99212 ==

== ENCOUNTER 2023-02-27 07:42 | Day surgery (SDC) | payer MEDICAID, SELFPAY ==
[2023-02-24 17:19] VITALS: BMI 29.9
--- NOTE | 2023-02-26 08:56 | HO.ANESPROP2 ---
Documented by User: Hyacinth Blackman NP 02/26/23 08:57 HPI - Anesthesia Eval Consult details Narrative: 47yo F for Novasure endometrial ablation PMFSH Active Problems Active Problems: All Active Problems (Updated 01/05/23 @ 14:20 by Holden Person MD) Low TSH level (Acute) Malpositioned IUD (Acute) IUD check up (Acute) Encounter for IUD insertion (Acute) Myoma (Acute) Abnormal uterine bleeding (Acute) Cellulitis, abdominal wall (Acute) Seroma complicating procedure (Acute) Past Medical History Medical History Hypertension Hypothyroid Sterilization Family History Family History Mother Hypertension Pulmonary embolism Surgical History Surgical History History of 3 sections History of abdominoplasty (11/13/20) History of augmentation of both breasts (11/13/20) History of left breast biopsy (11/2017) History of right breast biopsy (06/29/19) Social History Social History Household Members: Spouse Housing: Apartment Alcohol intake: never Patient Tobacco Use Status: Never used Tobacco Use of substances other than those prescribed or required for medical reasons: No Are you DNR?: No Advance Directives: No Advance Directives Information Provided: Yes Meds Allergies Allergy/AdvReac Type Severity Reaction Status Date / Time No Known Allergies Allergy Verified 02/10/23 10:05 [No Known Allergies*] Home Medications Medication Instructions Recorded Confirmed Last Taken Type COVID-19 antigen test (BinaxNOW #1 ea 04/01/22 Unknown History COVID-19 Ag Self Test kit) cholecalciferol (vitamin D3) 25 25 mcg PO DAILY 04/01/22 Unknown History mcg (1,000 unit) capsule hydrochlorothiazide 25 mg tablet 25 mg PO DAILY 04/01/22 Unknown History Exam Exam Date and Time: February 26, 2023 0856 Height,Weight and Vital Signs: Height 5 ft 4 in Weight 78.982 kg Narrative Narrative: ECHO 2021 Conclusions: - The left ventricular systolic function is normal.? The ? calculated ejection fraction is 56% by biplane method. ? - No obvious valvular pathology seen on this study.?? Assessment and Plan Assessment Anesthesia Assessment: Chart Reviewed Documented by User: Yolanda Morel MD 02/27/23 08:48 [facility] Past Medical History Medical History Hypertension Hypothyroid Sterilization Family History Family History Mother Hypertension Pulmonary embolism Family history of problems with anesthesia: No Surgical History Surgical History History of 3 sections History of abdominoplasty (11/13/20) History of augmentation of both breasts (11/13/20) History of left breast biopsy (11/2017) History of right breast biopsy (06/29/19) History of Problems with Anesthesia: No Social History Social History Household Members: Spouse Housing: Apartment Alcohol intake: never Patient Tobacco Use Status: Never used Tobacco Use of substances other than those prescribed or required for medical reasons: No Are you DNR?: No Advance Directives: No Advance Directives Information Provided: Yes Meds Allergies Allergy/AdvReac Type Severity Reaction Status Date / Time No Known Allergies Allergy Verified 02/10/23 10:05 [No Known Allergies*] Home Medications Medication Instructions Recorded Confirmed Last Taken Type COVID-19 antigen test (SheaW #1 ea 04/01/22 Unknown History COVID-19 Ag Self Test kit) cholecalciferol (vitamin D3) 25 25 mcg PO DAILY 04/01/22 Unknown History mcg (1,000 unit) capsule hydrochlorothiazide 25 mg tablet 25 mg PO DAILY 04/01/22 Unknown History Exam Airway Mallampati Class: III TM Dist: >3cm Neck ROM: Full Assessment and Plan Assessment Anesthesia Assessment: Anesthesia Plan Discussed Final Anesthetic Review Family History of Problems with Anesthesia: No History of Problems with Anesthesia: No NPO: Yes ASA Class: II Final Preanesthetic Review: No Changes in Pt Med Stat, Meds/Allgs Chart Reviewed, Consent Obtained/Reviewed and Anes Risks/Benef Reviewed Patient Risk: Low Procedure Risk: Low Anesthetic Plan Anesthetic Plan: GA Disposition: Standard PACU
[2023-02-27] VITALS (8 sets, daily range): BP systolic 117–172; BP diastolic 69–98; PULSE 55–75; RESP 16; TEMP 36.1–36.6; O2SAT 96–100
[2023-02-27 08:13] LABS: UPreg QC Valid YES; Urine Pregnancy NEGATIVE (NEGATIVE)
[2023-02-27] MEDS: Lactated Ringers 1,000 ML 100 ML IVCONT (08:27)
--- NOTE | 2023-02-27 08:55 | MHC.SHP ---
Pre-Procedural Eval Section A Date of Service: 02/27/23 The patient is an INPATIENT: No Changes since office visit: No Cold of Flu in the past 2 weeks, No New Medical Problems, No Changes in Medication and No Patient answered all questions The History & Physical has been completed within 30 days and I have reviewed it.: Yes Section B Chief Complaint: Abnormal uterine and vaginal bleeding, unspecified Allergies: Allergies Allergy/AdvReac Type Severity Reaction Status Date / Time No Known Allergies Allergy Verified 02/10/23 10:05 [No Known Allergies*] Plan Diagnosis/Plan: Unchanged I have reviewed the history and physical and performed a pertinent physical examination on my patient. No changes have occurred unless specified. Time Spent With Patient Time: Total time managing care of this patient today ____ minutes.
--- NOTE | 2023-02-27 09:49 | P.BOP_ITS ---
Brief Operative Note Date of Service: 02/27/23 Pre-op diagnosis: Abnormal uterine bleeding Post-op diagnosis: same Procedure: NovaSure Endometrial Ablation Surgeon: Holden Person MD Anesthesia: [facility]MA Was an Hazmat Cdl Driver used for this Procedure?: No Estimated blood loss (mL): 0 Pathology: none sent Condition: stable Disposition: PACU
--- NOTE | 2023-02-27 09:49 | W.PM.OPN ---
Operative Note Operative Note Date of Service: 02/27/23 Narrative: Preop diagnosis: Abnormal uterine bleeding Post Op Diagnosis: Same Op: Novasure Endometrial Ablation Anesthesia: GLMA Director Regulatory Affairs: None QBL: Minimal Pathology: None Complications: None Procedure: The patient was put in the dorsal lithotomy position. She was prepped and draped in the usual sterile manner. Bimanual exam prior to prepping revealed a mobile, anteverted uterus. A speculum was placed in the vagina and the anterior lip of the cervix was grasped with a single toothed tenaculum and brought forward. Taking care not to enter deep into the uterus, a sound was passed inside to measure the length of the uterus and cervix. This length was found to be 8 cm. Next, Hegar dilator was inserted into the cervical os to measure the cervical length which was 3 cm. This yielded an endometrial cavity length of 6.5 cm. A series of Hegar dilators were then inserted sequentially into the cervical os up to a size of 5 mm. The Novasure device was then opened and tested; the fan deployed easily. The instrument was set to the correct cavity length and introduced into the uterine cavity. The fan was slowly deployed with gentle movements to ensure a snug fit within the cavity. The cavity width read 4.5 cm. The measurements were imported and a cavity check was done. The trumpet was then slid down to the cervix and the device was activated. The total burn time was 91 seconds. The fan was retracted and device removed. The fan was examined and revealed charred tissue. The tenaculum was removed and the cervix examined for hemostasis which was achieved using pressure. Finally the speculum was removed. The patient tolerated the procedure well and was brought to the recovery room in a stable condition. At the end of the procedure all sponges and instruments were counted and correct. The blood loss was minimal and there were no complications.
[2023-02-27] MEDS: oxyCODONE HCl Immed Release 5 MG TABLET PO (10:11)
[2023-02-27] MEDS: fentaNYL citrate/PF 100 MCG/2 ML VIAL 50 MCG IVPUSH ×2 (10:12→10:17)
== END 2023-02-27 11:04 | disposition home or self-care (01) ==
PROVIDERS: Nurse Practitioner; PCP Pediatrics; Visit Provider Obstetrics & Gynecology
PROC: (CPT 58353; principal; 2023-02-27 09:30)
DX: N93.9 Abnormal uterine and vaginal bleeding, unspecified (principal); I10 Essential (primary) hypertension; E03.9 Hypothyroidism, unspecified; Z98.51 Tubal ligation status; Z79.899 Other long term (current) drug therapy
CPT/HCPCS: 58353; 81025; J1100; J2250; J2405; J3010

== ENCOUNTER → 2023-03-16 10:03 | Outpatient (BNVA) | payer MEDICAID, SELFPAY | PROVIDERS: PCP Pediatrics; Visit Provider Obstetrics & Gynecology | DX: N93.9 Abnormal uterine and vaginal bleeding, unspecified (principal) | CPT/HCPCS: 99212 ==

== ENCOUNTER 2023-11-23 07:00 | Outpatient (REF) | payer MEDICAID, SELFPAY ==
--- NOTE | ~2023-11-23 | XR_ITS ---
EXAMINATION: XR KNEE STANDING, BILATERAL XR KNEE, RIGHT CLINICAL INFORMATION: Pain in unspecified knee. COMPARISON: 06/22/2019. TECHNIQUE: AP standing view of bilateral knees. Wharton and lateral views of the right knee. FINDINGS: RIGHT KNEE: Trace joint effusion. Mild medial joint space narrowing. LEFT KNEE: AP standing view demonstrates mild medial joint space narrowing. XR/XR knee standing BI IMPRESSION: Mild degenerative changes.
--- NOTE | ~2023-11-23 | XR_ITS ---
EXAMINATION: XR KNEE STANDING, BILATERAL XR KNEE, RIGHT CLINICAL INFORMATION: Pain in unspecified knee. COMPARISON: 06/22/2019. TECHNIQUE: AP standing view of bilateral knees. Flasher and lateral views of the right knee. FINDINGS: RIGHT KNEE: Trace joint effusion. Mild medial joint space narrowing. LEFT KNEE: AP standing view demonstrates mild medial joint space narrowing. XR/XR knee RT 2V IMPRESSION: Mild degenerative changes.
== END 2023-11-23 07:01 | disposition home or self-care (01) ==
LOC: HO.HOSX 07:00
PROVIDERS: Visit Provider Orthopaedic Surgery
DX: M17.11 Unilateral primary osteoarthritis, right knee (principal)
CPT/HCPCS: 73560; 73565; 99202

== ENCOUNTER 2023-11-23 08:56 | Outpatient (AMB) | payer MEDICAID, SELFPAY ==
--- NOTE | 2023-11-23 08:21 | MHC.OFFVIS ---
Intake Intake Visit Reasons: New Pt - Right Knee Pain - MRI Done Intake Note: Stacey is a 48 year old female who presents today as a new patient with complaints of right knee pain. She was referred by her PCP who tried multiple cortisone injection with mild relief, and ordered MRI. Pt states heat and icing her knee helps but not for long. Pt is taking 600mg ibuprofen as needed for pain. Allergies No Known Allergies [No Known Allergies*] Allergy (Verified 11/23/23 09:03) HPI New Pt - Right Knee Pain - MRI Done HPI Details Stacey is a 48 year old woman who presents for an MRI review of her right knee pain. She complains of pain & swelling in her right knee with daily activity. She has found no relief from repeat steroid injections done by her PCP, and only mild relief from NSAIDs and icing. She can no longer walk for miles but can walk for 20-30 minutes without a problem. She describes swelling and pain at night. [facility] Medical History Sterilization Hypothyroid Hypertension Surgical History History of 3 sections History of right breast biopsy (06/29/19) History of left breast biopsy (11/2017) History of abdominoplasty (11/13/20) History of augmentation of both breasts (11/13/20) Family History Mother Hypertension Pulmonary embolism Social History Household Members: Spouse Housing: Apartment Alcohol intake: never Patient Tobacco Use Status: Never used Tobacco Review of Systems Const All systems reviewed & are unremarkable except as noted in HPI and below Physical Exam Const General: no acute distress, alert and awake Orientation/consciousness: patient oriented x3 HEENT Head: Yes normocephalic and Yes atraumatic Mouth: moist mucous membranes Eyes General: appearance normal, both eyes and all related structures EOM: EOMs intact bilaterally Chest Other: no audible wheezing. Resp Other: No audible wheezing Effort & Inspection: normal respiratory effort and able to speak in complete sentences Cardio Other: Radial pulse palpable with no rythmic abnormalities Jugular venous distension: no JVD Back/Spine/Pelvis Cervical Spine: normal cervical lordosis Skin General skin exam: turgor normal Rashes: no rashes Neuro General: patient oriented x3 Extrem Other: TTP lateral joint line with minimal effusion 1+ Valgus instability 0-125 deg motion Psych Appearance: grossly normal Mental Status: mental status grossly normal Speech and movement: Normal speech and movement present Affect: normal affect Attitude: cooperative Results Reviewed Results Reviewed: I personally reviewed the MR images. There is a joint effusion and focal full thickness cartilage thinning lateral plateau and PFJ I personally reviewed relevant radiographs. Essentially nl radiographs Assessment & Plan Assessment & Plan (1) Arthritis of right knee: Code(s): M17.11 - Unilateral primary osteoarthritis, right knee Plan: This is a 48 yo with right knee effusion, pain and MRI with e/o cartilage thinning and subchondral edema laterally. I recommend a right knee lateral drum loader and unloader and visocupplementation. I discussed this with her. Plan Prepared for Ko Turner MD by Cameron Bustos, medical coding technician, on 11/23/23 at 9:17 AM, EST. Orders: Orders XR knee standing BI Today M25.569 - Pain in unspecified knee XR knee RT 2V Today M25.569 - Pain in unspecified knee Coding Level of Care Code New Pt Level 3 (25606) Diagnoses Arthritis of right knee M17.11
== END 2023-11-23 09:29 | disposition home or self-care (01) ==
PROVIDERS: PCP Pediatrics; Visit Provider Orthopaedic Surgery
DX: M17.11 Unilateral primary osteoarthritis, right knee (principal); M25.461 Effusion, right knee
CPT/HCPCS: 99203

== ENCOUNTER 2023-12-10 09:54 | Outpatient (AMB) | payer MEDICAID, SELFPAY ==
--- NOTE | 2023-12-10 10:00 | MHC.OFFVIS ---
Intake Intake Visit Reasons: inj- right knee Euflexxa #1 - Confirmed Intake Note: Stacey is a 48 year old female who presents today for Right Knee Euflexxa Injection #1 Allergies No Known Allergies [No Known Allergies*] Allergy (Verified 11/23/23 09:03) HPI inj- right knee Euflexxa #1 - Confirmed HPI Details Stacey is a 48 year old female who presents today for Right Knee Euflexxa Injection #1 PFSH Medical History Sterilization Hypothyroid Hypertension Surgical History History of 3 sections History of right breast biopsy (06/29/19) History of left breast biopsy (11/2017) History of abdominoplasty (11/13/20) History of augmentation of both breasts (11/13/20) Family History Mother Hypertension Pulmonary embolism Social History Household Members: Spouse Housing: Apartment Alcohol intake: never Patient Tobacco Use Status: Never used Tobacco Physical Exam Extrem Other: moderate right knee effusion skin clean and dry ttp lateral compartment Office Procedures Joint Injection/Drain Joint Injection/Drain Details: Injected Euflexxa. Site was prepped using aseptic technique. Patient tolerated the procedure well. Coding - Large joint Procedure code (CPT) selection complete Assessment & Plan Assessment & Plan (1) Arthritis of right knee: Code(s): M17.11 - Unilateral primary osteoarthritis, right knee Plan: Injected the right knee with Euflexxa injection #1 of 3. She will return in one week for second injection next week Coding Level of Care Code Est Pt Level 2 (22852) Diagnoses Arthritis of right knee M17.11 CPT Codes Coding - Large joint: 52849 - Large joint ([id number])
== END 2023-12-10 11:54 ==
PROVIDERS: PCP Pediatrics; Visit Provider Orthopaedic Surgery
DX: M17.11 Unilateral primary osteoarthritis, right knee (principal)
CPT/HCPCS: 20610

== ENCOUNTER → 2023-12-10 09:54 | Outpatient (BNVA) | payer MEDICAID, SELFPAY | PROVIDERS: PCP Pediatrics; Visit Provider Orthopaedic Surgery | DX: M17.11 Unilateral primary osteoarthritis, right knee (principal) | CPT/HCPCS: 20610; J7323 ==

== ENCOUNTER 2023-12-17 12:08 | Outpatient (AMB) | payer MEDICAID, SELFPAY ==
--- NOTE | 2023-12-17 12:10 | A.OFFVIS_ITS ---
Intake Intake Visit Reasons: inj- right knee Euflexxa #2 Intake Note: Stacey is a 48 year old female who presents today for her 2nd Right Knee Euflexxa Injection. She reports that she has mild relief with the first injection Allergies No Known Allergies [No Known Allergies*] Allergy (Verified 11/23/23 09:03) HPI inj- right knee Euflexxa #2 HPI Details Stacey is a 48 year old female who presents today for her 2nd Right Knee Euflexxa Injection. She reports that she has mild relief with the first injection [facility] Medical History Sterilization Hypothyroid Hypertension Surgical History History of 3 sections History of right breast biopsy (06/29/19) History of left breast biopsy (11/2017) History of abdominoplasty (11/13/20) History of augmentation of both breasts (11/13/20) Family History Mother Hypertension Pulmonary embolism Social History Household Members: Spouse Housing: Apartment Alcohol intake: never Patient Tobacco Use Status: Never used Tobacco Physical Exam Extrem Other: skin c/d/i Office Procedures Joint Injection/Drain Joint Injection/Drain Details: Injected Euflexxa. Site was prepped using aseptic technique. Patient tolerated the procedure well. Secondary Site: right knee Approach Used: anterolateral Coding - Large joint Procedure code (CPT) selection complete Assessment & Plan Assessment & Plan (1) Arthritis of right knee: Code(s): M17.11 - Unilateral primary osteoarthritis, right knee Plan: I injected the right knee with Euflexxa #2 , return for last injection in one week. Coding Level of Care Code Est Pt Level 2 (09592) Diagnoses Arthritis of right knee M17.11 CPT Codes Coding - Large joint: 36242 - Large joint ([id number])
== END 2023-12-17 12:46 | disposition home or self-care (01) ==
PROVIDERS: PCP Pediatrics; Visit Provider Orthopaedic Surgery
DX: M17.11 Unilateral primary osteoarthritis, right knee (principal)
CPT/HCPCS: 20610

== ENCOUNTER → 2023-12-17 12:08 | Outpatient (BNVA) | payer MEDICAID, SELFPAY | PROVIDERS: PCP Pediatrics; Visit Provider Orthopaedic Surgery | DX: M17.11 Unilateral primary osteoarthritis, right knee (principal) | CPT/HCPCS: 20610; J7323 ==

== ENCOUNTER 2023-12-25 10:43 | Outpatient (AMB) | payer MEDICAID, SELFPAY ==
[2023-12-25 11:14] VITALS: BMI 31.6
--- NOTE | 2023-12-25 11:14 | A.OFFVIS_ITS ---
Intake Vital Signs 12/25/23 11:14 Height 5 ft 4 in Weight 184 lb BMI 31.6 Intake Visit Reasons: inj- right knee Euflexxa #3 Intake Note: Stacey is a 48 year old female who presents today for her 3rd Right Knee Euflexxa Injection. Patient reports only mild relief from the first two injections. Allergies No Known Allergies [No Known Allergies*] Allergy (Verified 12/25/23 11:18) HPI inj- right knee Euflexxa #3 HPI Details Stacey is a 48 year old female who presents today for her 3rd Right Knee Euflexxa Injection. Patient reports mild relief from the first two inject ions. [facility] Medical History Sterilization Hypothyroid Hypertension Surgical History History of 3 sections History of right breast biopsy (06/29/19) History of left breast biopsy (11/2017) History of abdominoplasty (11/13/20) History of augmentation of both breasts (11/13/20) Family History Mother Hypertension Pulmonary embolism Social History Household Members: Spouse Housing: Apartment Alcohol intake: never Patient Tobacco Use Status: Never used Tobacco Physical Exam Vital Signs: BMI result Body Mass Index 31.6 Extrem Other: skin c/d/i Office Procedures Joint Injection/Drain Joint Injection/Drain Details: Injected Euflexxa. Site was prepped using aseptic technique. Patient tolerated the procedure well. Primary Site: right knee Approach Used: anterolateral Coding - Large joint Procedure code (CPT) selection complete Assessment & Plan Assessment & Plan (1) Arthritis of right knee: Code(s): M17.11 - Unilateral primary osteoarthritis, right knee Plan I injected her right knee with Euflexxa #3 Coding Level of Care Code Est Pt Level 2 (55593) Diagnoses Arthritis of right knee M17.11 CPT Codes Coding - Large joint: 60948 - Large joint ([id number])
== END 2023-12-25 11:24 | disposition home or self-care (01) ==
PROVIDERS: PCP Pediatrics; Visit Provider Orthopaedic Surgery
DX: M17.11 Unilateral primary osteoarthritis, right knee (principal)
CPT/HCPCS: 20610

== ENCOUNTER → 2023-12-25 10:43 | Outpatient (BNVA) | payer MEDICAID, SELFPAY | PROVIDERS: PCP Pediatrics; Visit Provider Orthopaedic Surgery | DX: M17.11 Unilateral primary osteoarthritis, right knee (principal) | CPT/HCPCS: 20610; J7323 ==

== ENCOUNTER 2024-01-19 10:22 | Outpatient (REF) | payer MEDICAID, SELFPAY ==
[2024-01-19 15:08] LABS: TSH reflex Free T4 0.78 uIU/mL (0.32-4.0)
== END 2024-01-19 10:23 | disposition home or self-care (01) ==
LOC: HO.CHCLDS 10:22
PROVIDERS: Visit Provider Pediatrics
DX: E03.9 Hypothyroidism, unspecified (principal)
CPT/HCPCS: 36415; 84443

== ENCOUNTER 2024-06-14 11:54 | Outpatient (REF) | payer MEDICAID, SELFPAY ==
[2024-06-14 14:30] LABS: Appearance Urine Clear; Color Urine Yellow; Glucose Urine UA Negative (Negative); Leukocyte Esterase Urine Negative (Negative); Nitrite Urine Negative (Negative); Specific Gravity - Urine 1.015 (1.005-1.025); Urine Blood Negative (Negative); Urine Ketones Negative (Negative); Urine Protein Negative (Neg-Trace)
[2024-06-14 15:00] LABS: MANUAL DIFF FLAG NO
[2024-06-14 15:10] LABS: Basophils Absolute Auto 0.1 X10*3/uL (0.0-0.2); Basophils Percent Auto 0.9 % (0-2); Eosinophils Absolute Auto 0.4 X10*3/uL (0.0-0.4); Eosinophils Percent Auto 5.4 % (0-4); Hematocrit 40.6 % (37.0-47.0); Hemoglobin 13.9 g/dl (12.0-16.0); Imm Gran Abs Auto 0.03 X10*3/uL (0.00-0.03); Imm Gran Pct Auto 0.4 % (0.0-0.4); Lymphocytes Absolute Auto 2.4 X10*3/uL (1.2-4.9); Lymphocytes Percent Auto 32.1 % (20-40); Mean Corpuscular HGB Conc 34.2 g/dl (31.0-35.0); Mean Corpuscular Hemoglobin 31.6 pg (27.0-33.0); Mean Corpuscular Volume 92.3 fL (80.0-98.0); Mean Platelet Volume 9.4 fL (9.4-12.3); Monocytes Absolute Auto 0.6 X10*3/uL (0.1-1.2); Monocytes Percent Auto 7.9 % (2-11); Neutrophils Percent Auto 53.3 % (45-73); Platelet Count 392 X10*3/uL (160-400); Red Cell Distribution Width 13.2 % (11.0-16.0); White Blood Count 7.5 X10*3/uL (4.8-10.8)
[2024-06-14 15:17] LABS: Estimated Average Glucose 111 mg/dL; Hemoglobin A1c % 5.5 % (<6.0)
[2024-06-14 15:32] LABS: Anion Gap 10 (12-20); Blood Urea Nitrogen 10 mg/dL (9-16); Calcium 9.3 mg/dL (8.4-10.2); Carbon Dioxide 30 mmol/L (22-29); Chloride 102 mmol/L (96-108); Estimated Glomerular Filt Rate > 60; Glucose Random 98 mg/dL (60-115); Potassium 3.1 mmol/L (3.3-5.1); Sodium 139 mmol/L (135-145)
[2024-06-14 15:40] LABS: Microalbum/Creatinine Ratio Ur 14.6 ug/mg cr (<30)
[2024-06-14 15:41] LABS: TSH reflex Free T4 3.57 uIU/mL (0.32-4.0)
== END 2024-06-14 11:55 | disposition home or self-care (01) ==
LOC: HO.CHCLDS 11:54
PROVIDERS: Visit Provider Pediatrics
DX: I10 Essential (primary) hypertension (principal); R63.5 Abnormal weight gain; E03.9 Hypothyroidism, unspecified; E87.6 Hypokalemia
CPT/HCPCS: 36415; 80048; 81003; 82043; 82570; 83036; 84443; 85025

== ENCOUNTER 2024-06-20 19:56 | Emergency (ER) | payer MEDICAID, SELFPAY ==
--- NOTE | 2024-06-20 | ECG_ITS ---
Test Reason : CHEST PAIN Blood Pressure : / mmHG Vent. Rate : 074 BPM Atrial Rate : 074 BPM P-R Int : 158 ms QRS Dur : 094 ms QT Int : 416 ms P-R-T Axes : 041 -59 053 degrees QTc Int : 461 ms Normal sinus rhythm Left axis deviation Pulmonary disease pattern Septal infarct , age undetermined T wave abnormality, consider anterior ischemia Abnormal ECG No previous ECGs available Referred By: Generic ED Physician Electronically Signed By:CARROL ESPINOZA
--- NOTE | ~2024-06-20 | XR_ITS ---
EXAMINATION: XR CHEST CLINICAL INFORMATION: Chest pain. COMPARISON: Chest radiographs dated 09/29/2019. TECHNIQUE: Frontal view of the chest was obtained. FINDINGS: No significant abnormality is noted involving the heart, lungs, mediastinum, bony thorax or soft tissues. There is mild elevation of the right diaphragm. XR/XR chest 1V IMPRESSION: Unremarkable examination. Electronically signed by: Reyes Eduardo MD 06/20/2024 10:34 PM EDT
[2024-06-20 20:06] VITALS: BP 146/88; PULSE 91; O2SAT 96
[2024-06-20 20:29] VITALS: BMI 38.2
[2024-06-20 20:48] VITALS: BP 137/94; PULSE 80; RESP 17; TEMP 36.8; O2SAT 97
[2024-06-20 20:50] LABS: MANUAL DIFF FLAG NO
[2024-06-20 20:52] LABS: Basophils Absolute Auto 0.1 X10*3/uL (0.0-0.2); Basophils Percent Auto 0.9 % (0-2); Eosinophils Absolute Auto 0.4 X10*3/uL (0.0-0.4); Eosinophils Percent Auto 3.8 % (0-4); Hematocrit 42.3 % (37.0-47.0); Hemoglobin 14.9 g/dl (12.0-16.0); Imm Gran Abs Auto 0.03 X10*3/uL (0.00-0.03); Imm Gran Pct Auto 0.3 % (0.0-0.4); Lymphocytes Absolute Auto 3.8 X10*3/uL (1.2-4.9); Lymphocytes Percent Auto 38.1 % (20-40); Mean Corpuscular HGB Conc 35.2 g/dl (31.0-35.0); Mean Corpuscular Hemoglobin 31.6 pg (27.0-33.0); Mean Corpuscular Volume 89.8 fL (80.0-98.0); Mean Platelet Volume 8.9 fL (9.4-12.3); Monocytes Absolute Auto 0.8 X10*3/uL (0.1-1.2); Monocytes Percent Auto 7.8 % (2-11); Neutrophils Absolute Auto 4.8 x10*3/uL (2.0-8.3); Neutrophils Percent Auto 49.1 % (45-73); Platelet Count 349 X10*3/uL (160-400); Red Blood Count 4.71 X10*6/uL (4.20-5.50); Red Cell Distribution Width 13.1 % (11.0-16.0); White Blood Count 9.8 X10*3/uL (4.8-10.8)
--- NOTE | 2024-06-20 21:04 | ED.GENADULT ---
HPI - General Adult General Chief complaint: General Medical Stated complaint: CP headache x2 days, hypotension med change 06/07 Time Seen by Provider: 06/20/24 20:17 Source: patient Mode of arrival: ambulatory Limitations: no limitations History of Present Illness ED Provider: Sj ANEGL HPI narrative: 49-year-old female history of high blood pressure presents to ED for chest pain tightness with headache, nausea and vomiting. Patient denies any slurred speech, facial droop, paralysis of extremities, coughing up blood, calf pain, coughing up blood, shortness of breath. Patient states mild pleurisy. Patient denies any leg swelling, control use, or loss of vision. Related Data Home Medications ?Medication ?Instructions ?Recorded ?Confirmed cholecalciferol (vitamin D3) 25 25 mcg PO DAILY 04/01/22 mcg (1,000 unit) capsule hydrochlorothiazide 25 mg tablet 25 mg PO DAILY 04/01/22 ibuprofen 600 mg tablet 600 mg PO Q8H PRN 11/23/23 levothyroxine 137 mcg tablet 137 mcg PO QAM 11/23/23 valsartan 40 mg tablet 40 mg PO DAILY 11/23/23 Previous Rx's ?Medication ?Instructions ?Recorded famotidine 20 mg tablet (Pepcid) 20 mg PO BID 7 days #14 tabs 06/20/24 Allergies Allergy/AdvReac Type Severity Reaction Status Date / Time No Known Allergies Allergy Verified 06/20/24 20:30 [No Known Allergies*] Review of Systems Review of Systems: Chest tightness, nause, vomitting, hedache Yes all other systems are reviewed and are negative PMFSH Past Medical History Medical History Sterilization Hypothyroid Hypertension Surgical History History of 3 sections History of right breast biopsy (06/29/19) History of left breast biopsy (11/2017) History of abdominoplasty (11/13/20) History of augmentation of both breasts (11/13/20) Family History Family History Mother Hypertension Pulmonary embolism Social History Social History Household Members: Spouse Housing: Apartment Alcohol intake: never Patient Tobacco Use Status: Never used Tobacco Physical Exam ED Vital Signs: Vital Signs - 24 hr 06/20/24 20:48 06/20/24 22:00 Temperature 98.3 F 98.2 F Pulse Rate 80 75 Respiratory Rate 17 15 Blood Pressure 137/94 H 130/84 Pulse Oximetry 97 93 Oxygen Delivery Method Room Air Room Air BMI result Body Mass Index 38.2 Const General: cooperative, healthy appearing, comfortable, no acute distress, well developed, alert and awake Orientation/consciousness: patient oriented x3 HENMT Head: Yes normal to inspection, Yes No palpable skull fracture present, Yes normocephalic, Yes atraumatic and No abrasion Throat: Yes posterior oropharynx normal, Yes tonsils normal and Yes uvula midline Eyes General: appearance normal, both eyes and all related structures Neck Neck: Yes normal visual inspection, Yes full ROM, Yes no lymphadenopathy, Yes no meningeal signs, Yes trachea midline, Yes supple, No anterior neck swelling and No tender Chest Chest palpation & inspection: normal inspection of the chest and normal palpation of entire chest wall Resp Effort & Inspection: normal respiratory effort and able to speak in complete sentences Cardio Jugular venous distension: no JVD Heart sounds: S1 normal heart sound present and S2 normal heart sound present GI Inspection: Yes normal to inspection Palpation (GI): Soft to palpation, not firm, nontender, no guarding and not rigid General: No CVA tenderness and Yes no CVA tenderness Back/Spine/Pelvis Back: no CVA tenderness, No CVA tenderness and No back tenderness Skin General skin exam: no rashes or lesions noted, elasticity normal and turgor normal Neuro General: patient oriented x3, gait normal, tone normal, moves all extremities, Normal light touch and pain sensation, no meningeal signs, no focal motor deficits, CN's II-XI intact bilaterally and normal sensation to monofilament Extrem Other: Bilateral lower extremity negative for swelling, pitting edema, calf tenderness Psych Appearance: grossly normal, well kempt and not disheveled Medications Administered Discontinued Medications Generic Name Dose Route Start Last Admin Trade Name Freq PRN Reason Stop Dose Admin Al Hydroxide/Mg Hydroxide 30 ml 06/20/24 22:20 06/20/24 22:37 Magnesium Hydrox/Alum Hydrox 30 Ml Oral.Susp PO 06/20/24 22:21 30 ml ONCE ONE Administration Belladonna Alkaloids/Phenobarbital 10 ml 06/20/24 22:20 06/20/24 22:37 Phenobarb/Hyoscy/Atropine/Scop 10 Ml Elixir PO 06/20/24 22:21 10 ml ONCE ONE Administration Famotidine 20 mg 06/20/24 22:20 06/20/24 22:37 Famotidine/Pf 20 Mg/2 Ml Vial IVPUSH 06/20/24 22:21 20 mg ONCE ONE Administration Lidocaine HCl 15 ml 06/20/24 22:20 06/20/24 22:37 Lidocaine Hcl Viscous 2 % 15 Ml Solution MUCOUS MEM 06/20/24 22:21 15 ml ONCE ONE Administration Potassium Chloride 40 meq 06/20/24 21:30 06/20/24 21:40 Potassium Chloride Packet 20 Meq Packet PO 06/20/24 21:31 40 meq ONCE ONE Administration Medical Decision Making Medical Decision Making MDM Narrative: 49-year-old female with history of high blood pressure, blood pressure was thought presents to the ED chest tightness/chest pain since this morning. Patient denies any shortness of breath, leg swelling, cough vein, coughing up blood, calf pain, or pitting edema. Patient states slight pleurisy. Labs EKG chest x-ray ordered. 10:18pm: Patient describes pain as acid burning sensation will order GI cocktail. First troponin EKG normal. D-dimer negative. PERC score is 0. Patient given oral potassium. Patient chest pain feels better. No longer having acid burning sensation. Patient will follow up with primary care provider. Patient states she is menopausal. Differential Diagnosis Differential Diagnoses: The differential diagnosis associated with the presentation includes (Myocardial infarction, heart failure, PE, GERD) Admission/Observation Consideration of admission/observation: Escalation of care including admission/observation considered Lab Data [facility] Lab Attestation statement: I reviewed the patient's lab results. 06/20/24 20:27 06/20/24 22:58 Labs: Lab Results 06/20/24 06/20/24 06/20/24 Range/Units 20:27 20:43 21:14 WBC 9.8 (4.8-10.8) X10*3/uL RBC 4.71 (4.20-5.50) X10*6/uL Hgb 14.9 (12.0-16.0) g/dl Hct 42.3 (37.0-47.0) % MCV 89.8 (80.0-98.0) fL MCH 31.6 (27.0-33.0) pg MCHC 35.2 H (31.0-35.0) g/dl RDW 13.1 (11.0-16.0) % Plt Count 349 (160-400) X10*3/uL MPV 8.9 L (9.4-12.3) fL Immature Gran % (Auto) 0.3 (0.0-0.4) % Neut % (Auto) 49.1 (45-73) % Lymph % (Auto) 38.1 (20-40) % [place] % (Auto) 7.8 (2-11) % Eos % (Auto) 3.8 (0-4) % Baso % (Auto) 0.9 (0-2) % Lymph # (Auto) 3.8 (1.2-4.9) X10*3/uL [place] # (Auto) 0.8 (0.1-1.2) X10*3/uL Eos # (Auto) 0.4 (0.0-0.4) X10*3/uL Baso # (Auto) 0.1 (0.0-0.2) X10*3/uL Abs Immat Gran (auto) 0.03 (0.00-0.03) X10*3/uL Absolute Neuts (auto) 4.8 (2.0-8.3) x10*3/uL Absolute Nucleated RBC 0.000 (0.0-0.012) X10*3/uL Nucleated RBC % (auto) 0.0 (0.0-0.2) /100WBC PT 10.7 L (10.9-12.4) SEC INR 0.9 (0.9-1.1) APTT 31.4 (26.0-36.8) SEC D-Dimer High Sensitivty Cancelled < 150 Sodium 139 (135-145) mmol/L Potassium 2.8 L* (3.3-5.1) mmol/L Chloride 101 (96-108) mmol/L Carbon Dioxide 28 (22-29) mmol/L Anion Gap 13 (12-20) BUN 12 (9-16) mg/dL Creatinine 0.78 (0.5-1.4) mg/dL Estim Creat Clear Calc 98.2 Estimated GFR > 60 Random Glucose 96 (60-115) mg/dL Calcium 9.6 (8.4-10.2) mg/dL Magnesium 2.3 (1.6-2.6) mg/dL Total Bilirubin 0.4 (0.0-1.0) mg/dL AST 31 (5-31) U/L ALT 30 (0-31) U/L Alkaline Phosphatase 77 (39-117) U/L Troponin I High Sens < 2.7 (<3.5-17.0) ng/L B-Natriuretic Peptide < 10 (<100) pg/mL Total Protein 7.8 (6.5-8.0) g/dL Albumin 4.4 (3.5-5.0) g/dL Lipase 25 (8-78) U/L Beta HCG, Quant mIU/mL Hold Green Top Influenza Type A (PCR) NEGATIVE (Negative) Influenza Type B (PCR) NEGATIVE (Negative) RSV RNA Qual (PCR) NEGATIVE (Negative) SARS-CoV-2 RNA (RT-PCR) NEGATIVE (Negative) 06/20/24 Range/Units 22:58 WBC (4.8-10.8) X10*3/uL RBC (4.20-5.50) X10*6/uL Hgb (12.0-16.0) g/dl Hct (37.0-47.0) % MCV (80.0-98.0) fL MCH (27.0-33.0) pg MCHC (31.0-35.0) g/dl RDW (11.0-16.0) % Plt Count (160-400) X10*3/uL MPV (9.4-12.3) fL Immature Gran % (Auto) (0.0-0.4) % Neut % (Auto) (45-73) % Lymph % (Auto) (20-40) % [place] % (Auto) (2-11) % Eos % (Auto) (0-4) % Baso % (Auto) (0-2) % Lymph # (Auto) (1.2-4.9) X10*3/uL [place] # (Auto) (0.1-1.2) X10*3/uL Eos # (Auto) (0.0-0.4) X10*3/uL Baso # (Auto) (0.0-0.2) X10*3/uL Abs Immat Gran (auto) (0.00-0.03) X10*3/uL Absolute Neuts (auto) (2.0-8.3) x10*3/uL Absolute Nucleated RBC (0.0-0.012) X10*3/uL Nucleated RBC % (auto) (0.0-0.2) /100WBC PT (10.9-12.4) SEC INR (0.9-1.1) APTT (26.0-36.8) SEC D-Dimer High Sensitivty Sodium (135-145) mmol/L Potassium 3.4 D (3.3-5.1) mmol/L Chloride (96-108) mmol/L Carbon Dioxide (22-29) mmol/L Anion Gap (12-20) BUN (9-16) mg/dL Creatinine (0.5-1.4) mg/dL Estim Creat Clear Calc Estimated GFR Random Glucose (60-115) mg/dL Calcium (8.4-10.2) mg/dL Magnesium (1.6-2.6) mg/dL Total Bilirubin (0.0-1.0) mg/dL AST (5-31) U/L ALT (0-31) U/L Alkaline Phosphatase (39-117) U/L Troponin I High Sens < 2.7 (<3.5-17.0) ng/L B-Natriuretic Peptide (<100) pg/mL Total Protein (6.5-8.0) g/dL Albumin (3.5-5.0) g/dL Lipase (8-78) U/L Beta HCG, Quant < 2 mIU/mL Hold Green Top See Note Influenza Type A (PCR) (Negative) Influenza Type B (PCR) (Negative) RSV RNA Qual (PCR) (Negative) SARS-CoV-2 RNA (RT-PCR) (Negative) Independent Interpretation I performed an independent interpretation of an: EKG (Normal sinus rhythm. Negative) and Plain X-Ray Radiology Impression Discussion of test interpretation with radiology: I have reviewed the radiologist's reading. Independent Historian Clinical information obtained from an independent historian. History obtained from or confirmed by: Other (Patient) External Record Review External record reviewed: Other (Prior visits) Prescription Management I considered prescription management with: Other (GERD) Discharge Plan Discharge Clinical Impression: Atypical chest pain, GERD (gastroesophageal reflux disease) Patient Disposition: Home, Self-Care Instructions: Chest Pain (ED), Gastroesophageal Reflux Disease (ED) Additional Instructions: Recommend follow-up with primary care provider. Return to ED immediately for any chest pain, shortness of breath, leg swelling, calf pain, coughing up blood, chest pain on inspiration, slurred speech, facial droop, paralysis of extremities, loss of vision, intractable nausea/vomiting, headache, or any other concerning symptoms. FINDINGS: No significant abnormality is noted involving the heart, lungs, mediastinum, bony thorax or soft tissues. There is mild elevation of the right diaphragm. XR/XR chest 1V IMPRESSION: Unremarkable examination. Electronically signed by: Reyes Eduardo MD 06/20/2024 10:34 PM EDT RP Prescriptions: New famotidine [Pepcid] 20 mg tablet 20 mg PO BID 7 Days Qty: 14 0RF No Action hydrochlorothiazide 25 mg tablet 25 mg PO DAILY cholecalciferol (vitamin D3) 25 mcg (1,000 unit) capsule 25 mcg PO DAILY Mirena 20 mcg/24 hours (7 yrs) 52 mg intrauterine device 1 device intrauterine ONCE Qty: 1 0RF valsartan 40 mg tablet 40 mg PO DAILY levothyroxine 137 mcg tablet 137 mcg PO QAM ibuprofen 600 mg tablet 600 mg PO Q8H PRN Stand Alone Forms: Work/School Release Interventions: ED Discharge Assessment Last Done: 06/21/24 00:14 Discharge Date/Time: 06/21/24 00:18 Print Language: Kyrgyz
[2024-06-20 21:11] LABS: B Type Natriuretic Peptide < 10 pg/mL (<100)
[2024-06-20 21:16] LABS: Alanine Aminotransferase 30 U/L (0-31); Albumin Level 4.4 g/dL (3.5-5.0); Alkaline Phosphatase 77 U/L (39-117); Anion Gap 13 (12-20); Aspartate Amino Transferase 31 U/L (5-31); Bilirubin Total 0.4 mg/dL (0.0-1.0); Blood Urea Nitrogen 12 mg/dL (9-16); Calcium 9.6 mg/dL (8.4-10.2); Carbon Dioxide 28 mmol/L (22-29); Chloride 101 mmol/L (96-108); Creatinine Clr Calc Pharmacy 98.2; Estimated Glomerular Filt Rate > 60; Glucose Random 96 mg/dL (60-115); Magnesium 2.3 mg/dL (1.6-2.6); Potassium 2.8 mmol/L (3.3-5.1); Sodium 139 mmol/L (135-145); Total Protein 7.8 g/dL (6.5-8.0); Troponin-I High Sensitivity < 2.7 ng/L (<3.5-17.0)
[2024-06-20 21:28] LABS: Influenza A PCR NEGATIVE (Negative); Influenza B PCR NEGATIVE (Negative); Resp Syncy Virus RNA Qual PCR NEGATIVE (Negative); SARS COV2 PCR INHOUSE NEGATIVE (Negative)
[2024-06-20 21:33] LABS: Lipase 25 U/L (8-78)
[2024-06-20 21:36] LABS: INTERNATIONAL NORM RATIO 0.9 (0.9-1.1); Prothrombin Time 10.7 SEC (10.9-12.4)
[2024-06-20 21:39] LABS: Partial Thromboplastin Time 31.4 SEC (26.0-36.8)
[2024-06-20] MEDS: Potassium Chloride Packet 20 MEQ PACKET 40 MEQ PO (21:40)
[2024-06-20 21:42] LABS: D Dimer High Sensitivity < 150 NG/ML
[2024-06-20 22:00] VITALS: BP 130/84; PULSE 75; RESP 15; TEMP 36.8; O2SAT 93
[2024-06-20] MEDS: Lidocaine HCl Viscous 2 % 15 ML SOLUTION MUCOUS MEM (22:37)
[2024-06-20] MEDS: PHENobarb/Hyoscy/Atropine/Scop 10 ML ELIXIR PO (22:37)
[2024-06-20] MEDS: Famotidine/PF 20 MG/2 ML VIAL IVPUSH (22:37)
[2024-06-20] MEDS: Magnesium Hydrox/Alum Hydrox 30 ML ORAL.SUSP PO (22:37)
[2024-06-20 23:13] LABS: Potassium 3.4 mmol/L (3.3-5.1)
[2024-06-20 23:26] LABS: Troponin-I High Sensitivity < 2.7 ng/L (<3.5-17.0)
[2024-06-21 00:08] LABS: HCG Quantitative < 2 mIU/mL
[2024-06-21 00:14] VITALS: BP 134/88; PULSE 84; RESP 18; TEMP 36.9; O2SAT 96
== END 2024-06-21 00:18 | disposition home or self-care (01) ==
PROVIDERS: Physician Assistant; Physician Assistant Medical; Emergency Provider Emergency Medicine; PCP Pediatrics
DX: R07.9 Chest pain, unspecified (principal); K21.9 Gastro-esophageal reflux disease without esophagitis; R51.9 Headache, unspecified; R11.2 Nausea with vomiting, unspecified; R09.1 Pleurisy; I10 Essential (primary) hypertension; E03.9 Hypothyroidism, unspecified; Z79.899 Other long term (current) drug therapy; Z03.818 Encounter for observation for suspected exposure to other biological agents ruled out
CPT/HCPCS: 0241U; 36415; 71045; 80053; 83690; 83735; 83880; 84132; 84484; 84702; 85025; 85379; 85610; 85730; 93005; 96374; 99284

== ENCOUNTER 2024-06-21 15:30 | Outpatient (REF) | payer MEDICAID, SELFPAY ==
[2024-06-21 18:52] LABS: Anion Gap 10 (12-20); Blood Urea Nitrogen 14 mg/dL (9-16); Calcium 9.7 mg/dL (8.4-10.2); Carbon Dioxide 31 mmol/L (22-29); Chloride 101 mmol/L (96-108); Estimated Glomerular Filt Rate > 60; Glucose Random 100 mg/dL (60-115); Potassium 3.3 mmol/L (3.3-5.1); Sodium 139 mmol/L (135-145)
== END 2024-06-21 15:31 | disposition home or self-care (01) ==
LOC: HO.CHCLDS 15:30
PROVIDERS: Visit Provider Internal Medicine
DX: I10 Essential (primary) hypertension (principal); E87.6 Hypokalemia
CPT/HCPCS: 36415; 80048

== ENCOUNTER 2024-09-07 08:58 | Outpatient (REF) | payer MEDICAID, SELFPAY ==
[2024-09-07 10:58] LABS: Hematocrit 40.9 % (37.0-47.0); Hemoglobin 14.1 g/dl (12.0-16.0); Mean Corpuscular HGB Conc 34.5 g/dl (31.0-35.0); Mean Corpuscular Hemoglobin 30.9 pg (27.0-33.0); Mean Corpuscular Volume 89.7 fL (80.0-98.0); Mean Platelet Volume 9.3 fL (9.4-12.3); Platelet Count 340 X10*3/uL (160-400); Red Blood Count 4.56 X10*6/uL (4.20-5.50); Red Cell Distribution Width 12.2 % (11.0-16.0); White Blood Count 7.4 X10*3/uL (4.8-10.8)
[2024-09-07 11:42] LABS: HCG Quantitative < 2 mIU/mL; TSH reflex Free T4 1.31 uIU/mL (0.32-4.0)
[2024-09-08 13:09] LABS: Follicle Stimulating Hormone 30.7 mIU/mL; Lutenizing Hormone 9.2 mIU/mL; Prolactin 6.7 ng/mL
== END 2024-09-07 08:59 | disposition home or self-care (01) ==
LOC: HO.LAB 08:58
PROVIDERS: PCP Pediatrics; Visit Provider Obstetrics & Gynecology
DX: N93.9 Abnormal uterine and vaginal bleeding, unspecified (principal)
CPT/HCPCS: 36415; 83001; 83002; 84146; 84443; 84702; 85027; 99212; 99459

== ENCOUNTER 2024-09-07 08:58 | Outpatient (AMB) | payer MEDICAID, SELFPAY ==
[2024-09-07 09:02] VITALS: BP 120/82; BMI 35.1
--- NOTE | 2024-09-07 09:02 | A.OFFVIS_ITS ---
Vital Signs 09/07/24 09:02 Height 5 ft 3 in Weight 198 lb BMI 35.1 BP 120/82 Intake Visit Reasons: vaginal bleeding Head Of Talent Management Required: No Information Interpreted: non-clinical & clinical School Laboratory Technician: School Laboratory Technician Present (Alejandra ARROYO) Accompanied by: Self / Same As Patient Allergies No Known Allergies [No Known Allergies*] Allergy (Verified 09/07/24 09:15) HPI Comments Details: The patient is presenting c/o vaginal bleeding associated with passage of blood clots and abdominal cramping. it started few months ago and is getting worse no other associated symptoms. Last co testing was 04/18 was negative Last mammogram was [facility] 2 in 12[facility] Medical History Sterilization Hypothyroid Hypertension Surgical History (Updated 09/07/24 @ 09:24 by Holden Person MD) History of endometrial ablation History of 3 sections History of right breast biopsy (06/29/19) History of left breast biopsy (11/2017) History of abdominoplasty (11/13/20) History of augmentation of both breasts (11/13/20) Family History Mother Hypertension Pulmonary embolism Social History Household Members: Spouse Housing: Apartment Alcohol intake: never Patient Tobacco Use Status: Never used Tobacco Review of Systems Const All systems reviewed & are unremarkable except as noted in HPI and below Card Reports as per HPI Resp Reports as per HPI GI Reports as per HPI and Reports no additional complaints Reports as per HPI Physical Exam Vital Signs: Last Vital Signs BP 120/82 09/07/24 09:02 BMI result Body Mass Index 35.1 Const General: cooperative, healthy appearing and comfortable Chest Chest palpation & inspection: normal inspection of the chest and normal palpation of entire chest wall Breast/axilla inspection: normal inspection of the breasts and normal inspection of the axillae Breast/axilla palpation: normal palpation of the breasts, normal palpation of the axillae and no axillary lymphadenopathy Resp Effort & Inspection: normal respiratory effort Auscultation: clear to auscultation bilaterally Percussion: percussion normal Cardio Palpation: normal PMI Rate: regular rate Rhythm: regular rhythm Heart sounds: no murmurs and no rubs Peripheral pulses: Peripheral pulses 2+ throughout GI Inspection: Yes normal to inspection Palpation (GI): Soft to palpation, nontender, no guarding, not rigid and No hepatosplenomegaly present Percussion: Yes normal to percussion Auscultation: normal bowel sounds Rectal Exam - Female: deferred General: Yes bladder normal to palpation External Female Exam: No lesion Speculum Exam - Vagina: normal appearance of the vagina, normal palpation, normal vaginal discharge and not erythematous Speculum Exam - Cervix: normal appearance of the cervix and normal palpation Bimanual exam- vagina & uterus: normal bimanual exam, normal palpation, uterine size normal, bladder normal to palpation, consistency normal and normal palpation Bimanual Exam- Adnexa, other: normal adnexae, no masses and no tenderness Assessment & Plan Assessment & Plan (1) Abnormal uterine bleeding: Comment: Status post NovaSure endometrial ablation Code(s): N93.9 - Abnormal uterine and vaginal bleeding, unspecified Category: Medical Plan: Screening mammogram ordered. GC and chlamydia taken CBC, TSH, prolactin, HCG, and pelvic ultrasound ordered. Discussed with the patient the different causes of abnormal bleeding including thyroid disorders, uterine and ovarian pathology, endometrial hyperplasia, carcinoma and other potential causes. Discussed with the patient the work up including CBC (to r/o anemia), TSH, prolactin, pelvic Ultrasound, endometrial biopsy to r/o endometrial pathology. All questions answered and the patient verbalized understanding. Instructed the patient to schedule an appointment for an endometrial biopsy in 2 weeks. Orders: Orders MM tomosynthesis screening BI Today Z12.31 - Encounter for screening mammogram for malignant neoplasm of breast US pelvic and transvaginal Today N93.9 - Abnormal uterine and vaginal bleeding, unspecified Follicle Stimulating Hormone Today N93.9 - Abnormal uterine and vaginal bleeding, unspecified TSH reflex Free T4 Today N93.9 - Abnormal uterine and vaginal bleeding, unspecified Prolactin Today N93.9 - Abnormal uterine and vaginal bleeding, unspecified HCG Quantitative Today N93.9 - Abnormal uterine and vaginal bleeding, unspecified Complete Blood Count no Diff Today N93.9 - Abnormal uterine and vaginal bleeding, unspecified Lutenizing Hormone Today N93.9 - Abnormal uterine and vaginal bleeding, unspecified MM screening mammo BI Today Z12.31 - Encounter for screening mammogram for malignant neoplasm of breast Coding Level of Care Code Est Pt Level 3 (34831) Diagnoses Abnormal uterine bleeding N93.9
--- OUTSIDE RECORDS SUMMARY | 2024-09-07 23:17 | XMS_ITS | Data Portability ---
Author Organization [facility] [address] Address [address] [place] [address] Assessment No assessment recorded. Plan of Treatment Reminders Order Date Submit Date Provider Last Modified By Organization Details Last Modified Time Details Appointments None record ed. Lab None record ed. Referral None record ed. Procedures None record ed. Surgeries None record ed. Imaging None record ed. Medication Orders None record ed. Patient TargetsNo targets recorded. Patient InstructionsNo instructions recorded. Reason for Referral None Reported. Medical Equipment None Reported. Medications Name Sig Start Date Stop Date Status Note LastModified by Organization Details LastModified Time levothyroxine 137 mcg tablet TAKE 1 TABLET BY MOUTH IN THE MORNING active Not Available Not Available No t Available trazodone 50 mg tablet active Not Available Not Available No t Available amitriptyline 10 mg tablet active Not Available Not Available Not Available hydrochlorothi azide 25 mg tablet TAKE 1 TABLET BY MOUTH DAILY active Not Available Not Available No t Available ibuprofen 600 mg tablet TAKE 1 TABLET BY MOUTH EVERY 8 HOURS WITH FOOD NEEDED active Not Available Not Available No t Available loratadine 10 mg tablet TAKE 1 TABLET BY MOUTH EVERY DAY active Not Available Not Available No t Available valsartan 40 mg tablet TAKE 1 TABLET BY MOUTH EVERY DAY active Not Available Not Available No t Available Vitamin D3 50 mcg (2,000 unit) capsule TAKE 1 CAPSULE BY MOUTH EVERY DAY active Not Available Not Available No t Available BinaxNOW COVID-19 Ag Self Test kit TEST DIRECTED TODAY active Not Available Not Available No t Available Vitals None Recorded Social History None recorded. Functional Status None recorded. Mental Status None recorded. Family History Nothing Reported. Medical History No medical history recorded. Gynecological HistoryNo gynecological history recorded. Obstetrics History GPAL:G 0 P 0 0 0 0 Past Encounters Encounter ID Performer Location Encounter Start Date Encounter Closed Date Diagnosis/Indication Diagnosis SNOMED-CT Code Diagnosis ICD10 Code [id number] [facility] [address] [address] 12/12/2022 10:53:41 12/30/2022 19:47:00 Left without being seen [id number] 9102 Z53.21 Health Concerns Section Related Observation LastModified by Organization Detai ls LastModified Time None Recorded Concern Status LastModified by Organization Details LastModified Time None Recorded Advance Directives Directive None Recorded Payers Encounter Date Sequence Insurance Name Policy Number Policy Ibarra Covered Member ID Ibarra Member ID Guarantor Name 12/12/2022 1 MEDICAID[place]: [facility] Stacey Dasilva [id number] Stacey Dasilva OBGyn Episode No OBEpisode recorded.
== END 2024-09-07 09:45 | disposition home or self-care (01) ==
LOC: HO.HWS 08:58
PROVIDERS: PCP Pediatrics; Visit Provider Obstetrics & Gynecology
DX: N93.9 Abnormal uterine and vaginal bleeding, unspecified (principal)
CPT/HCPCS: 99213

== ENCOUNTER 2024-09-07 09:49 | Outpatient (REF) | payer MEDICAID, SELFPAY ==
[2024-09-08 02:29] LABS: CT PCR NOT DETECTED (Not Detect.); NG PCR NOT DETECTED (Not Detect.)
== END 2024-09-07 09:50 | disposition home or self-care (01) ==
LOC: HO.LNP 09:49
PROVIDERS: Visit Provider Obstetrics & Gynecology
DX: N93.9 Abnormal uterine and vaginal bleeding, unspecified (principal)
CPT/HCPCS: 87491; 87591

== ENCOUNTER 2024-11-18 08:06 | Outpatient (REF) | payer MEDICAID, SELFPAY ==
--- NOTE | ~2024-11-18 | XR_ITS ---
CLINICAL HISTORY: heel pain x 2 months 3 view right foot Comparison: None Findings: Bones intact. No dislocations. No significant arthritic change or erosions. No ankle effusion. No radiopaque foreign body. IMPRESSION: 1. No acute findings. This document has been electronically signed by: Kolby Luciano MD on 11/18/2024 13:22:45
--- OUTSIDE RECORDS SUMMARY | 2024-11-18 08:11 | XMS_ITS | Encounter Summary ---
Author Organization [employer] Address [address] [place] [address] Care Team Providers Care Lumber Hacker Name Role Phone Luzmaria Feliz MD Primary Care Provider [phone] Encounter Details Date Type Department Care Team ([facility] st Contact Info) Description 10/25/2024 Orders Only [facility] [address] [place] [address] Luzmaria Feliz MD [address] [place] [address] Social History Tobacco Use Types Packs/Day Years Used Date Smoking Tobacco: Never Passive Smoke Exposure: Never Smokeless Tobacco: Never Alcohol Use Standard Drinks/Week Comments Never 0 (1 standard drink = 0.6 oz pur e alcohol) Alcohol Answer Date Recorded Frequency of Alcohol Consumption Not on file 07/14/2024 Average Number of Drinks Not on file 024 Frequency of Binge Drinking Not on file 06/28 Score 0 07/14/2024 Depression Answer Date Recorded Patient Health Questionnaire-9 Score 2 07/14/2024 Patient Health Questionnaire-9 Score 2 07/14/2024 Last PHQ-9: Questionnaire Data Not on file 1 Housing Stability Answer Date Recorded What is your housing situation today? I have tawnya reeves 07/14/[address] you li ve. Do you have problems with any of the following? None of the above 07/14/2024 Food Insecurity Answer Date Recorded Within the past 12 months, y ou worried that your food would run out before you got money to buy more: Never True 07/14/2024 Within the past 12 months,th e food you bought just didn't last and you didn't have enough money to get more: Never True Transportation Answer Date Recorded In the past 12 months, has l ack of transportation kept you from medical appts, meetings, work or from getting things needed for daily living? No 07/14/2024 Utilities Answer Date Recorded In the past 12 months, has t he electric, gas, oil or water company threatened to shut off services in your home? No 07/14/2024 Depression Answer Date Recorded Patient Health Questionnaire-2 Score 0 07/14/2024 Internet Access Answer Date Recorded Internet Access Q1 Yes 07/14/2024 Internet Access Q2 Not on file 07/14/2024 Comments Unknown Sex and Gender Information Value Date Recorded Sex Assigned at Female 07/28/2022 10:17 AM EDT Legal Sex Female 10:17 AM EDT Gender Identity Female 07/28/2022 10:17 AM EDT Sexual Orientation Straight 07/28/2022 10 :17 AM EDT documented as of this encounter Plan of Treatment Upcoming Encounters Date Type Department Care Team (Late st Contact Info) Description 01/17/2025 9:45 AM EDT Office Visit [facility] [address] [place] [address] Luzmaria Feliz MD [address] [place] [address] documented as of this encounter Visit Diagnoses Not on filedocumented in this encounter Additional Health Concerns Assessment Noted Time PHQ-9 Depression Total Score: 2 07/14/20 24 9:59 AM EDT documented as of this encounter Care Teams Lumber Hacker Relationship Specialty Start Date End Date Luzmaria Feliz MD [address] [place] [address] PCP - General Family Medicine 09/28/18 documented as of this encounter
--- OUTSIDE RECORDS SUMMARY | 2024-11-18 08:11 | XMS_ITS | Encounter Summary ---
Author Organization [employer] Address [address] [facility] 7 [place] [address] Care Team Providers Care Affirmative Action Specialist Name Role Phone Luzmaria Feliz MD Primary Care Provider [phone] Reason for Visit * Reason Onset Date Comments PA 10/19/2024 Encounter Details Date Type Department Care Team ([facility] Contact Info) Description 10/19/2024 Telephone [facility] MED & PEDS [address] [place], [place] [phone] Luzmaria Feliz MD [address] [place] [address] PA Social History Tobacco Use Types Packs/Day Years [...] AM EDT documented as of this encounter Miscellaneous Notes * Telephone Encounter - Geena Walsh - 11/15/2024 9:57 AM EST Images from the original note were not included. Tc from pt requesting status on phentermine 8 MG tablet. * Telephone Encounter - Geena Walsh - 10/19/2024 11:29 AM EST Tc from pt calling to inform a PA is needed for medication phentermine 8 MG tablet. documented in this encounter Plan of Treatment Upcoming Encounters Date Type Department Care Team ([facility] st Contact Info) Description 01/17/2025 9:45 AM EDT Office Visit [facility] MED & PEDS [address], [place] [phone] Luzmaria Feliz MD [address] [place], [place] [phone] documented as of this encounter Visit Diagnoses Not on filedocumented in this encounter Additional Health Concerns Assessment Noted Time PHQ-9 Depression Total Score: 2 07/14/20 24 9:59 AM EDT documented as of this encounter Care Teams Affirmative Action Specialist Relationship Specialty Start Date End Date Luzmaria Feliz MD [address] [place] [address] PCP - General Family Medicine 09/28/18 documented as of this encounter
--- OUTSIDE RECORDS SUMMARY | 2024-11-18 08:11 | XMS_ITS | Encounter Summary ---
Author Organization [employer] Address [address] [facility] 7 [place] [address] Care Team Providers Care Tape Making Machine Operator Name Role Phone Luzmaria Feliz MD Primary Care Provider [phone] Reason for Visit * Reason Comments Med Refill Encounter Details Date Type Department Care Team (Late Contact Info) Description 01/24/2023 Refill [facility] CHC MED & PEDS [address] [place], [place] [phone] Luzmaria Feliz MD [address] [place] [address] Social History Tobacco Use Types Packs/Day Years Used Date Smoking Tobacco: Never Passive Smoke Exposure: Never Smokeless Tobacco: Never Alcohol Use Standard Drinks/Week Comments Never 0 (1 standard drink = 0.6 oz pur e alcohol) Depression Answer Date Recorded Patient Health Questionnaire-9 Score 3 10/31/2022 Depression Answer Date Recorded Patient Health Questionnaire-2 Score 0 10/31/2022 Comments Unknown Sex and Gender Information Value Date Recorded Sex Assigned at Female 07/28/2022 10:17 AM EDT Legal Sex Female 10:17 AM EDT Gender Identity Female 07/28/2022 10:17 AM EDT Sexual Orientation Straight 07/28/2022 10 :17 AM EDT COVID-19 Exposure Response Date Recorded In the last 10 days, have yo u been in contact with someone who was confirmed or suspected to have Coronavirus/COVID-19? No / Unsure 01/06/2023 11:14 AM EDT documented as of this encounter Plan of Treatment Upcoming Encounters Date Type Department Care Team (Late st Contact Info) Description 01/17/2025 9:45 AM EDT Office Visit [facility] CHC MED & PEDS [address] [place] [address] Luzmaria Feliz MD [address] [place] [address] documented as of this encounter Visit Diagnoses Not on filedocumented in this encounter Additional Health Concerns Assessment Noted Time PHQ-9 Depression Total Score: 3 10/31/19 23 9:57 AM EST documented as of this encounter Care Teams Tape Making Machine Operator Relationship Specialty Start Date End Date Luzmaria Feliz MD [address] [place] [address] PCP - General Family Medicine 09/28/18 documented as of this encounter
--- OUTSIDE RECORDS SUMMARY | 2024-11-18 08:11 | XMS_ITS | Data Portability ---
Author Organization KELLIE Davey [facility] [id number] Address [address] [place] [address] Assessment No assessment recorded. Plan of Treatment [...] Diagnosis/Indication Diagnosis SNOMED-CT Code Diagnosis ICD10 Code Diagnosis Note [id number] KELLIE BRIDGES [id number] [address] 12/12/2022 10:53:41 12/30/2022 19:47:00 Left without being seen [id number] Z53.21 Health Concerns Section Related Observation LastModified by Organization Detai ls LastModified Time None Recorded Concern Status LastModified by Organization Details LastModified Time None Recorded Advance Directives Directive None Recorded Payers Encounter Date Sequence Insurance Name Policy Number Policy Ibarra Covered Member ID Ibarra Member ID Guarantor Name 12/12/2022 1 [place]: [facility] Stacey Dasilva [id number] Stacey Dasilva OBGyn Episode No OBEpisode recorded.
--- OUTSIDE RECORDS SUMMARY | 2024-11-18 08:11 | XMS_ITS | Encounter Summary ---
Author Organization [employer] Address [address] [facility] 7t [place] [address] Care Team Providers Care Supervisor Cooler Service Name Role Phone Luzmaria Feliz MD Primary Care Provider [phone] Reason for Visit * Reason Comments Med Refill Encounter Details Date Type Department Care Team ([facility] st Contact Info) Description 07/26/2024 Refill [facility] CHC MED & PEDS [address] [place] [address] Carrie Walters MD [address] [place] [address] Hypokalemia Social History Tobacco Use Types Packs/Day Years [...] Description 01/17/2025 9:45 AM EDT Office Visit [facility] CHC MED & PEDS [address] [place] [address] Luzmaria Feliz MD [address] [place] [address] documented as of this encounter Visit Diagnoses Diagnosis Hypokalemia Hypopotassemia documented in this encounter Additional Health Concerns Assessment Noted Time PHQ-9 Depression Total Score: 2 07/14/20 24 9:59 AM EDT documented as of this encounter Care Teams Supervisor Cooler Service Relationship Specialty Start Date End Date Luzmaria Feliz MD [address] [place] [address] PCP - General Family Medicine 09/28/18 documented as of this encounter
--- OUTSIDE RECORDS SUMMARY | 2024-11-18 08:11 | XMS_ITS | Encounter Summary ---
Author Organization [employer] Address [address] [facility] 7t [place] [address] Care Team Providers Care Lcac Operator Name Role Phone Luzmaria Feliz MD Primary Care Provider [phone] Reason for Visit * Reason Comments Med Refill Encounter Details Date Type Department Care Team ([facility] st Contact Info) Description 11/13/2024 Refill [facility] MEDICINE [address] [place] [address] Luzmaria Feliz MD [address] [place] [address] Social History Tobacco Use Types Packs/Day Years [...] Description 01/17/2025 9:45 AM EDT Office Visit [facility] CHC MED & PEDS [address] [place] [address] Luzmaria Feliz MD [address] [place] [address] documented as of this encounter Visit Diagnoses Not on filedocumented in this encounter Additional Health Concerns Assessment Noted Time PHQ-9 Depression Total Score: 2 07/14/20 24 9:59 AM EDT documented as of this encounter Care Teams Lcac Operator Relationship Specialty Start Date End Date Luzmaria Feliz MD [address] [place] [address] PCP - General Family Medicine 09/28/18 documented as of this encounter
--- OUTSIDE RECORDS SUMMARY | 2024-11-18 08:11 | XMS_ITS | Encounter Summary ---
Author Organization [employer] Address [address] [facility] 7t [place] [address] Care Team Providers Care Wire Rigger Name Role Phone Luzmaria Feliz MD Primary Care Provider [phone] Reason for Visit * Reason Onset Date Comments Triage 10/14/2022 Encounter Details Date Type Department Care Team ([facility] st Contact Info) Description 10/14/2022 Telephone [facility] MEDICINE [address] [place] [address] Luzmaria Feliz MD [address] [place] [address] Triage Social History Tobacco Use Types Packs/Day Years Used Date Smoking Tobacco: Never Assessed Alcohol Answer Date Recorded Frequency of Alcohol [...] your housing situation today? I have tawnya lala 07/14/[address] you li [...] suspected to have Coronavirus/COVID-19? No / Unsure 03/17/2023 8:43 AM EDT documented as of this encounter Miscellaneous Notes * Telephone Encounter - Monserrat Alejo RN - 10/14/2022 11:50 AM EST Triage call with Michael Bieker Workforce Development Program Director [place] [id number] Pt reports that for over a year now, insomnia has been a problem. Pt doesn't get more than 5-6hrs. of sleep per day. Pt has tried melatonin and many OTC remedies without success. Pt requests to speakto provider. Tele visit with Dr. Michele 10/15 @ 9477h. Protocol Used: Insomnia (Adult) Protocol-Based Disposition: See in Office or Video Visit within 3 Days Video visit not offered Positive Triage Question: * Insomnia persists > 1 week and following Insomnia Care Advice * All higher-acuity triage questions were negative Care Advice Discussed: * Reassurance and Education * Tips for Good Sleep * Tips for Good Sleep - Your Bedroom * Tips for Good Sleep - When You Can't Fall Asleep * Tips for Good Sleep - When Worrying Keeps You Awake * Tips for Good Sleep - What To Avoid * How Much Sleep Is Enough? * Reasons To Call Back - Insomnia symptoms persist over 2 weeks - You become worse * Telephone Encounter - Nohemy Wilder - 10/14/2022 9:01 AM EST Symptom: Sleeping Difficulty Outcome: Schedule an appointment to be seen within 24 hours Reason: This is the only possible outcome for this symptom The caller rejected this outcome Please contact at [phone] documented in this encounter Plan of Treatment Upcoming Encounters Date Type Department Care Team ([facility] st Contact Info) Description 01/17/2025 9:45 AM EDT Office Visit [facility] MED & PEDS [address] [place] [address] Luzmaria Feliz MD [address] [place] [address] documented as of this encounter Visit Diagnoses Not on filedocumented in this encounter Care Teams Wire Rigger Relationship Specialty Start Date End Date Luzmaria Feliz MD [address] [place] [address] PCP - General Family Medicine 09/28/18 documented as of this encounter
--- OUTSIDE RECORDS SUMMARY | 2024-11-18 08:11 | XMS_ITS | Encounter Summary ---
Author Organization [employer] Address [address] [facility] [address] [place] [address] Care Team Providers Care Sea Air Land Officer Name Role Phone Luzmaria Feliz MD Primary Care Provider [phone] Reason for Visit * Reason Onset Date Comments Medication Question 10/14/2022 Encounter Details Date Type Department Care Team ([facility] st Contact Info) Description 10/14/2022 Telephone [facility] MEDICINE [address] [place] [address] Luzmaria Feliz MD [address] [place] [address] Medication Question Social History Tobacco Use Types Packs/Day Years [...] encounter Miscellaneous Notes * Telephone Encounter - Johny Finnegan RN - 10/14/2022 9:07 AM EST Please review message below and advise. Thank you. * Telephone Encounter - Nohemy Wilder - 10/14/2022 8:59 AM EST Tc from pt stating insurance is requesting a 90 day supply for hydrochlorothiazide 25 mg. Please contact at [phone] Speaks Estonian documented in this encounter Plan of Treatment Upcoming Encounters Date Type Department Care Team ([facility] Contact Info) Description 01/17/2025 9:45 AM EDT Office Visit [facility] MED & PEDS [address] [place] [address] Luzmaria Feliz MD [address] [place] [address] documented as of this encounter Visit Diagnoses Diagnosis HTN (hypertension), benign- Primary Essential hypertension, benign documented in this encounter Care Teams Sea Air Land Officer Relationship Specialty Start Date End Date Luzmaria Feliz MD [address] [place] [address] PCP - General Family Medicine 09/28/18 documented as of this encounter
--- OUTSIDE RECORDS SUMMARY | 2024-11-18 08:11 | XMS_ITS | Encounter Summary ---
Author Organization [employer] Address [address] [facility] 7t [place] [address] Care Team Providers Care Furniture Reproducer Name Role Phone Luzmaria Feliz MD Primary Care Provider [phone] Encounter Details Date Type Department Care Team (Latest Contact Info) Description 11/17/2024 Travel Social History Tobacco Use Types Packs/Day Years [...] Description 01/17/2025 9:45 AM EDT Office Visit [facility] MED & PEDS [address] [place] [address] Luzmaria Feliz MD [address] [place] [address] documented as of this encounter Visit Diagnoses Not on filedocumented in this encounter Additional Health Concerns Assessment Noted Time PHQ-9 Depression Total Score: 2 07/14/20 24 9:59 AM EDT documented as of this encounter Care Teams Furniture Reproducer Relationship Specialty Start Date End Date Luzmaria Feliz MD [address] [place] [address] PCP - General Family Medicine 09/28/18 documented as of this encounter
--- OUTSIDE RECORDS SUMMARY | 2024-11-18 08:11 | XMS_ITS | Clinical Summary ---
Author Organization [employer] Address [address] [facility] [address] [place] [address] Care Team Providers Care Perl Software Engineer Name Role Phone Luzmaria Feliz MD Primary Care Provider [phone] Allergies No known active allergies Medications levothyroxine (Synthroid, Levoxyl) 137 MCG tablet TAKE 1 TABLET BY MOUTH EVERY DAY 90 tablet 01/27/20 23 Active Stimulant Laxative 8.6-50 MG tablet TAKE 1 TABLET BY MOUTH IN THE MORNING 30 tablet 11 02/01/20 24 Active loratadine (Claritin) 10 MG tablet TAKE 1 TABLET BY MOUTH EVERY DAY 90 tablet 2 03/14/20 24 Active polyethylene glycol, PEG, 3350 (Glycolax) 17 GM/SCOOP powder DISSOLVE 17 GRAMS IN 4 OUNCES OF WATER OR ANY OTHER FLUID AND DRINK DAILY 510 g 2 03/14/20 24 Active triamcinolone (Kenalog) 0.1 % cream Apply topically 2 times daily. 30 g 1 06/07/20 24 Active ibuprofen 600 MG tablet TAKE 1 TABLET BY MOUTH EVERY 8 HOURS WITH FOOD NEEDED 90 tablet 2 08/22/20 24 Active amitriptyline (Elavil) 50 MG tablet Take 1 tablet (50 mg) by mouth at bedtime. 30 tablet 11 08/30/20 24 025 Active cholecalcifero l VITAMIN D (Vitamin D-3) 50 MCG (1999) capsuleIndicat ions:Vitamin D deficiency TAKE 1 CAPSULE BY MOUTH EVERY DAY 90 capsule 1 08/30/20 24 Active topiramate (Topamax) 50 MG tablet Take 1 tablet (50 mg) by mouth Once per day. 30 tablet 3 10/18/19 25 Active levothyroxine (Synthroid, Levoxyl) 137 MCG tablet TAKE 1 TABLET BY MOUTH BEFORE BREAKFAST 90 tablet 1 11/15/19 25 Active phentermine 15 MG capsuleIndicat ions:BMI 33.0-33.9,adul t Take 1 capsule (15 mg) by mouth before breakfast. 30 capsule 11/17/19 25 025 Active dilTIAZem CD (Cardizem CD) 120 MG 24 hr capsule Take 1 capsule (120 mg) by mouth Once per day. 30 capsule 11 11/17/19 25 026 Active levothyroxine (Synthroid, Levoxyl) 137 MCG tablet TAKE 1 TABLET BY MOUTH BEFORE BREAKFAST 90 tablet 1 04/12/20 24 025 Discontinued hydroCHLOROthi azide (HYDRODiuril) 25 MG tabletIndicati ons:HTN (hypertension) , benign TAKE 1 TABLET BY MOUTH DAILY 90 tablet 2 10/12/19 25 025 Discontinued(In effective) phentermine 8 MG tablet Take 1 tablet (8 mg) by mouth Once per day. 30 tablet 10/18/19 25 025 Discontinued Active Problems Problem Noted Date Diagnosed Date Cellulitis, abdominal wall 09/23/202309/23 Encounter for IUD insertion 09/23/202308/29 High blood pressure 09/23/2023 09/23/2023 IUD check up 09/23/2023 09/23/2023 Low TSH level 09/23/2023 09/23/2023 Abnormal uterine bleeding 09/23/20232022 Myoma 09/23/2023 09/23/2023 Seroma 09/23/2023 09/23/2023 Malpositioned IUD 09/23/2023 09/23/2023 LLQ pain 11/03/2022 Assessment & Plan (11/03/2022 5:52 PM EST): Patient with LLQ pain, benign abdominal exam. [place], will send abdominal imaging and f/u with results. Primary insomnia 10/15/2022 Assessment & Plan (10/15/2022 11:18 AM EST): Patient refer that for the past year she has been having issues with sleeping. Denied snoring, reviewed lifestyle modifications, she refers taking melatonin without effect, will start trazodone. Benign essential hypertension 08/18/2018 Generalized anxiety disorder 06/10/2018 Fibroadenoma of left breast 12/30/2017 Vesicular eczema of hands and feet 03/27/2017 Refractory migraine without aura 12/20/2015 Knee pain 02/06/2014 Irritable bowel syndrome 06/21/2013 Allergic rhinitis 10/22/2011 Obesity 10/22/2011 Abdominal pain 05/27/2010 Anxiety state 04/12/2010 Acquired hypothyroidism 04/12/2010 Encounters Date Type Department Care Team Description 11/17/2024 2:00 PM EST Office Visit [facility] [address] [place] [address] Luzmaria Feliz MD BMI 33.0-33.9,adult (Primary Dx); Heel pain, chronic, right 11/17/2024 Travel 11/17/2024 Telephone [facility] [address] [place] [address] Luzmaria Feliz MD Nurse Triage 11/13/2024 Refill [facility] [address] [place] [address] Luzmaria Feliz MD 10/25/2024 Orders Only [facility] [address] [place] [address] Luzmaria Feliz MD 10/19/2024 Telephone [facility] [address] [place] [address] Luzmaria Feliz MD PA 10/18/2024 Orders Only [facility] [address] [place] [address] Luzmaria Feliz MD 10/18/2024 Orders Only [facility] [address] [place] [address] Luzmaria Feliz MD 10/12/2024 Refill [facility] [address] [place] [address] Luzmaria Feliz MD HTN (hypertension), benign 10/11/2024 Telephone [facility] [address] [place] [address] Luzmaria Feliz MD PA 08/30/2024 11:30 AM EST Office Visit [facility] [address] [place] [address] Luzmaria Feliz MD BMI 33.0-33.9,adult (Primary Dx); Vitamin D deficiency; HTN (hypertension), benign; Obesity, Class I, BMI 30-34.9; Acquired hypothyroidism 08/30/2024 Travel 08/22/2024 Refill [facility] [address] [place] [address] Luzmaria Feliz MD 08/21/2024 Refill [facility] [address] [place] [address] Luzmaria Feliz MD from Last 3 Months Immunizations Name Administration Dates Next Due Influenza Injectable Quadriv alant Preservative Free IIV4 MDCK 06/29/2020 Influenza injectable quadriv alent IIV4 with preservative 07/12/2019,06/14/2018,06/19/2016 Influenza injectable quadriv alent preservative free 06/19/2021,07/01/2017,06/22/2015 Influenza, Injectable, MDCK, preservative free 05/24/2024 Pfizer Covid-19 Vaccine 12+ 12/11/2020, Pfizer Covid-19 Vaccine 12+ Bivalent 12/18/2022 TD (adult), 2 Lf tetanus tox oid, preservative free, adsorbed 02/26/2019 Tdap 07/01/2017 Social History Tobacco Use Types Packs/Day Years Used Date Smoking Tobacco: Never Passive Smoke Exposure: Never Smokeless Tobacco: Never Tobacco Cessation:Counseling Given: Not Answered Alcohol Use Standard Drinks/Week Comments Never 0 [...] Orientation Straight 07/28/2022 10 :17 AM EDT Last Filed Vital Signs Vital Sign Reading Time Taken Comments Blood Pressure 130/80 11/17/2024 2:32 PM EST Pulse 81 11/17/2024 2:01 PM EST Temperature 36.6 ??C (97.8 ??F) 11/17/2024 2:01 PM ES T Respiratory Rate 20 11/17/2024 2:01 PM EST Oxygen Saturation 96% 11/17/2024 2:01 PM EST Inhaled Oxygen Concentration - - Weight 89.4 kg (197 lb) 11/17/2024 2:01 PM EST Height 162.6 cm (5' 4 ) 11/17/2024 2:01 PM EST Body Mass Index 33.81 11/17/2024 2:01 PM EST Plan of Treatment Upcoming Encounters Date Type Department Care Team ([facility] st Contact Info) Description 01/17/2025 9:45 AM EDT Office Visit [facility] [address] [place] [address] Luzmaria Feliz MD [address] [place] [address] Health Maintenance Due Date Last Done Comments CT Colonography 1975 Colonoscopy 1975 Colorectal Cancer Screening 1975 FIT DNA/Cologuard 1975 FIT 1975 FOBT 1975 HIV Screening 1975 Sigmoidoscopy 1975 Family Planning (PISQ) 1991 Hepatitis C Screening 1994 Hepatitis B Vaccines (1 of 3 - 19+ 3-dose series) 1995 COVID-19 Vaccine ( season) 2024 12/18/2022, 06/24/2021, 12/11/2020, Additional history exists Mammogram 12/22/2024 12/22/2022, 11/27, 02/13/2022, Additional history exists Alcohol/Substance Use Screening 07/14/2025 07/14/2024 Depression Screening 07/14/2025 07/14/2024, 07/14/20 24 SDOH Screening 07/14/2025 07/14/2024 Tobacco Screening 08/30/2025 08/30/2024 Zoster Vaccines (1 of 2) 2026 Lipid Panel 07/30/2026 07/30/2021, 10/25/2020 Cervical Cancer Screening 04/01/2027 HPV/Cotest 04/01/2027 04/01/2022, 07/0 01/2022, 04/01/2022, Additional history exists Pap Smear 04/01/2027 04/01/2022 DTaP/Tdap/Td Vaccines (3 - Td or Tdap) 02/26/2029 02/26/2019, 07/01/2017 RSV Patients and Patients Aged 60 years or older (1 - 1-dose 75+ series) 2051 Influenza Vaccine Completed 05/24/2024, , 06/29/2020, Additional history exists HIB Vaccines Aged Out No longer eligi ble based on patient's age to complete this topic HPV Vaccines Aged Out No longer eligi ble based on patient's age to complete this topic Hepatitis A Vaccines Aged Out No long er eligible based on patient's age to complete this topic IPV Vaccines Aged Out No longer eligi ble based on patient's age to complete this topic Meningococcal Vaccine Aged Out No milka wanda eligible based on patient's age to complete this topic Pneumococcal Vaccine: Pediatrics (0 to 5 Years) and At-Risk Patients (6 to 49) Years) Aged Out No longer eligible based on patient's age to complete this topic RSV under 20 months Aged Out No longe r eligible based on patient's age to complete this topic Rotavirus Vaccines Aged Out No longer eligible based on patient's age to complete this topic Procedures Procedure Name Priority Date/Time Associated Diagnosis Comments PROLACTIN Routine 09/07/2024 9:59 AM EST Hypokalemia LH Routine 09/07/2024 9:59 AM EST Hypokalemia FSH Routine 09/07/2024 9:59 AM EST Hypokalemia HCG, TOTAL, QN Routine 09/07/2024 9:59 AM EST Hypokalemia TSH W/REFLEX TO FT4 Routine 09/07/2024 9 :59 AM EST Hypokalemia CBC Routine 09/07/2024 9:59 AM EST Hypokalemia BI US BREAST LIMITED RIGHT Routine 12/22/2022 3:27 PM EDT HM PAP/HPV Routine 04/01/2022 ZZZ HISTORICAL LIPID PANEL Routine 07/30/2021 8:14 AM EDT from Last 3 Months or Most Recently Relevant to Health Maintenance Results * TSH with Reflex to Free T4 (09/07/2024 9:59 AM EST) TSH reflex Free T4 1.31 0.32 - 4.0 uIU/mL [facility] 09/07/2024 9:59 AM EST 09/07/2024 9:59 AM EST Generic External Data Provider LAB BLOOD ORDERAB LES Final Result Performing Organization Address [facility] Co de Phone Number [facility] [address] [place] [phone] * Prolactin (09/07/2024 9:59 AM EST) Pathologist [facility] Prolactin 6.7 ng/mL [facility] Comment:Reference Range Fema les Non- 3.0-30.0 10.0-209.0 Postmenopausal 2.0-20.0THIS TEST WAS PERFORMED AT:[email or web address] [place] [id number] RAO MD 09/07/2024 9:59 AM EST 09/07/2024 9:59 AM EST Generic External Data Provider LAB BLOOD ORDERAB LES Final Result Performing Organization Address [facility] de Phone Number [facility] [address] [place] [phone] * (ABNORMAL) CBC (09/07/2024 9:59 AM EST) White Blood Count 7.4 4.8 - 10.8 X10*3/uL [facility] Red Blood Count 4.56 4.20 - 5.50 X10*6/uL [facility] Hemoglobin 14.1 12.0 - 16.0 g/dl [facility] Hematocrit 40.9 37.0 - 47.0 % [facility] Mean Corpuscular Volume 89.7 80.0 - 98.0 fL [facility] Mean Corpuscular Hemoglobin 30.9 27.0 - 33.0 pg [facility] Mean Corpuscular HGB Conc 34.5 31.0 - 35.0 g/dl [facility] Red Cell Distribution Width 12.2 11.0 - 16.0 % [facility] Platelet Count 340 160 - 400 X10*3/uL [facility] Mean Platelet Volume 9.3(L) 9.4 - 12.3 fL [facility] NRBC Pct Auto 0.0 0.0 - 0.2 /100WBC [facility] NRBC Abs Auto 0.000 0.0 - 0.012 X10*3/uL [facility] 09/07/2024 9:59 AM EST 09/07/2024 9:59 AM EST us Generic External Data Provider LAB BLOOD ORDERAB LES Final Result Performing Organization Address City/State/[facility] Co de Phone Number [facility] [address] [place] [phone] * hCG, Total, Quantitative (09/07/2024 9:59 AM EST) HCG Quantitative <2 mIU/mL [facility] Comment:Weeks post LMP Appro ximate hCG(Last Menstrual Period) Range (mIU/ml)3 - 4 weeks 9 - 1304 - 5 weeks 75 - 2,6005 - 6 weeks 850 - 20,8006 - 7 weeks 4000 - 100,2007 - 12 weeks 11,500 - 289,22747 - 16 weeks 18,300 - 137,74256 - 29 weeks (2nd trimester) 1,400 - 53,47647 - 41 weeks (3rd trimester) 940 - 60,000The Brownlee B- hCG assay is used for the early detection ofpregnancy; it cannot be used to diagnose any conditionunrelated to . If a B-hCG level is not supportedby the clinical evidence, results should be confirmed by analternative method (qualitative urine hCG, for example). 09/07/2024 9:59 AM EST 09/07/2024 9:59 AM EST us Generic External Data Provider LAB BLOOD ORDERAB LES Final Result Performing Organization Address [facility]/ZIP Co de Phone Number [facility] [address] [place] [phone] * LH (09/07/2024 9:59 AM EST) Lutenizing Hormone 9.2 mIU/mL [facility] Comment:Reference Range Foll icular Phase 1.9-12.5 Mid-Cycle Peak 8.7-76.3 Luteal Phase 0.5-16.9 Postmenopausal 10.0-54.7THIS TEST WAS PERFORMED AT:[facility] [place] [id number] RAO MD 09/07/2024 9:59 AM EST 09/07/2024 9:59 AM EST us Generic External Data Provider LAB BLOOD ORDERAB LES Final Result Performing Organization Address [facility] de Phone Number [facility] [address] [place] [phone] * FSH (09/07/2024 9:59 AM EST) Follicle Stimulating Hormone 30.7 mIU/mL [facility] Comment:Reference Range Foll icular Phase 2.5-10.2 Mid-cycle Peak 3.1-17.7 Luteal Phase 1.5- 9.1 Postmenopausal 23.0-116.3THIS TEST WAS PERFORMED AT:[facility] [place] [phone] RAO MD 09/07/2024 9:59 AM EST 09/07/2024 9:59 AM EST us Generic External Data Provider LAB BLOOD ORDERAB LES Final Result Performing Organization Address [facility]/ZIP Co de Phone Number [facility] [address] [place] [phone] * BI US Breast Limited Right (12/22/2022 3:27 PM EDT) Anatomical Region Laterality Modality Breast Right Ultrasound 12/22/2022 3:27 PM EDT Narrative 12/22/2022 5:38 PM EDT ? [facility] ? [address] ?[place] [address] ? Ultrasound Report ? Signed ? Patient: VidyaStacey malone ?MR#: [id number] ?? 2230 ? : 1975 ?Acct:[id number] ? Age/Sex: 47 / F ?ADM Date: 12/22/22 ? Loc: HO.MAMMO ? Attending Dr: Luzmaria Feliz MD ? Ordering Physician: Luzmaria Feliz MD ?? Date of Service: 12/22/22 ?? Procedure(s): US breast RT limited ?? Accession Number(s): [id number] ? cc: Luzmaria Feliz MD ? EXAMINATION: ?? MM DIAGNOSTIC DIGITAL BREAST TOMOSYNTHESIS, BILATERAL ?? US DIAGNOSTIC ULTRASOUND BREAST, RIGHT ? CLINICAL INFORMATION: ? Due for yearly. Palpable mass right breast noted by patient in the area ?? of prior benign biopsy (fibroadenoma, 2019). ? Family history breast cancer mother, maternal aunt. The lifetime risk ?? of breast cancer based on the Tyrer-Cuzick Model is 17%. ? COMPARISON: ?? Prior mammography exams, most recent 02/13/2022, ultrasound-guided ?? right breast biopsy 06/29/2019, ultrasound right breast 06/20/2019. ? TECHNIQUE: ?? Digital mammography is performed in craniocaudal and mediolateral ?? oblique views. ??Digital breast tomosynthesis is performed in ?? implant-displaced craniocaudal and implant-displaced mediolateral ?? oblique views. ??Synthesized 2D images are generated from the ?? tomosynthesis. ?? Computer-aided detection (CAD) is performed for this ?? exam. ? Ultrasound right breast is targeted to the area of clinical concern. ?? Grayscale imaging and color Doppler are performed without and with ?? harmonics. ? FINDINGS: ?? There are scattered areas of fibroglandular density (ACR BI-RADS breast ?? composition Category b). ? Parenchymal pattern is similar to prior exams. There is no interval ?? mass or architectural abnormality or developing density. There is a ?? biopsy clip marker anterior upper outer right breast overlying ?? biopsy-proven fibroadenoma and also corresponding to the area of ?? palpable concern. No abnormal calcifications. ? There are bilateral implants with smooth contours, similar to prior ?? mammography. The axilla are unremarkable. The skin contours are smooth. ?? There is no skin thickening or coarsening of the stromal markings. ? Ultrasound right breast demonstrates macrolobulated oval solid ?? circumscribed mass (biopsy proven fibroadenoma) with a specular echo ?? consistent with the biopsy clip marker. Dimensions are similar to prior ?? ultrasound 06/29/2019. Current measurements are 2.5 x 1.3 x 2.2 cm. ?? Prior measurements are 2.4 x 1.2 x 1.9 cm. This also corresponds to the ?? site of patient's clinical palpable finding. There is no other cystic ?? or solid mass or architectural abnormality in this area. No skin ?? thickening or edema tracking in soft tissue planes. ? Results are discussed with the patient at time of visit. Genetic ?? testing also discussed as well as adjunct screening with breast MRI if ?? clinically indicated. Patient notes upcoming outside appointment with ?? surgical oncology. ? US/US breast RT limited ?? IMPRESSION: ?? -No significant change in mammographic pattern when compared with prior ?? study. ? -Palpable concern corresponds to the biopsy-proven fibroadenoma upper ?? outer breast, 2.5 x 1.3 x 2.2 cm (prior measurements 06/20/2019: 2.4 x ?? 1.2 x 1.9 cm). ? ASSESSMENT: ? BI-RADS 2: Benign ? RECOMMENDATION: ?? 1. Patient should be managed based on the clinical impression. ?? 2. Additional adjunct screening with breast MRI as clinical risk ?? factors warrant. ?? 3. Otherwise, routine annual screening mammography. ? This patient's information was entered into a reminder system with a ?? target due date for their next mammogram. ? Dictated By: ?Mike Nguyen MD ? Signed By: ?<Electronically signed by Mike Nguyen MD in OV> ?12/22/22 1736 ? DD/ 1527 ? TD/TT: ? Trailer Technician: CASTILLO ? Procedure Note Donotuseinterpreter, Image - [facility] [address] [place] [address] Ultrasound Report Signed Patient: Stacey Dasilva RMR#: [id number] 2230 : 1975Acct:[id number] Age/Sex: 47 / FADM Date: 12/22/22 Loc: HO.MAMMO Attending Dr: Luzmaria Feliz MD Ordering Physician: Luzmaria Feliz MD Date of Service: 12/22/22 Procedure(s): US breast RT limited Accession Number(s): [id number] cc: Luzmaria Feliz MD EXAMINATION: MM DIAGNOSTIC DIGITAL BREAST TOMOSYNTHESIS, BILATERAL US DIAGNOSTIC ULTRASOUND BREAST, RIGHT CLINICAL INFORMATION: Due for yearly. Palpable mass right breast noted by patient in the area of prior benign biopsy (fibroadenoma, 2019). Family history breast cancer mother, maternal aunt. The lifetime risk of breast cancer based on the Tyrer-Cuzick Model is 17%. COMPARISON: Prior mammography exams, most recent 02/13/2022, ultrasound-guided right breast biopsy 06/29/2019, ultrasound right breast 06/20/2019. TECHNIQUE: Digital mammography is performed in craniocaudal and mediolateral oblique views. Digital breast tomosynthesis is performed in implant-displaced craniocaudal and implant-displaced mediolateral oblique views. Synthesized 2D images are generated from the tomosynthesis. Computer-aided detection (CAD) is performed for this exam. Ultrasound right breast is targeted to the area of clinical concern. Grayscale imaging and color Doppler are performed without and with harmonics. FINDINGS: There are scattered areas of fibroglandular density (ACR BI-RADS breast composition Category b). Parenchymal pattern is similar to prior exams. There is no interval mass or architectural abnormality or developing density. There is a biopsy clip marker anterior upper outer right breast overlying biopsy-proven fibroadenoma and also corresponding to the area of palpable concern. No abnormal calcifications. There are bilateral implants with smooth contours, similar to prior mammography. The axilla are unremarkable. The skin contours are smooth. There is no skin thickening or coarsening of the stromal markings. Ultrasound right breast demonstrates macrolobulated oval solid circumscribed mass (biopsy proven fibroadenoma) with a specular echo consistent with the biopsy clip marker. Dimensions are similar to prior ultrasound 06/29/2019. Current measurements are 2.5 x 1.3 x 2.2 cm. Prior measurements are 2.4 x 1.2 x 1.9 cm. This also corresponds to the site of patient's clinical palpable finding. There is no other cystic or solid mass or architectural abnormality in this area. No skin thickening or edema tracking in soft tissue planes. Results are discussed with the patient at time of visit. Genetic testing also discussed as well as adjunct screening with breast MRI if clinically indicated. Patient notes upcoming outside appointment with surgical oncology. US/US breast RT limited IMPRESSION: -No significant change in mammographic pattern when compared with prior study. -Palpable concern corresponds to the biopsy-proven fibroadenoma upper outer breast, 2.5 x 1.3 x 2.2 cm (prior measurements 06/20/2019: 2.4 x 1.2 x 1.9 cm). ASSESSMENT: BI-RADS 2: Benign RECOMMENDATION: 1. Patient should be managed based on the clinical impression. 2. Additional adjunct screening with breast MRI as clinical risk factors warrant. 3. Otherwise, routine annual screening mammography. This patient's information was entered into a reminder system with a target due date for their next mammogram. Dictated By: Mike Nguyen MD Signed By: <Electronically signed by Mike Nguyen MD in OV> 12/22/22 1736 DD/ 1527 TD/TT: Trailer Technician: JONATHAN [facility] External Provider IMG US PROCEDURES Final Result * Hm Pap Smear (04/01/2022) Pap Negative for intraephithelial lesion or malignancy Negative for intraephithelial lesion or malignancy, Other HPV Undetected Historical Provider HEALTH MAINTENANCE Final Result * (ABNORMAL) LIPID PANEL (07/30/2021 8:14 AM EDT) Cholesterol 195 mg/dL [facility] Comment: Desirable Cholesterol: ?less than 200 mg/dL Borderline High Cholesterol: ??200-239 mg/dL High Cholesterol: ? greater than 239 mg/dL HDL Cholesterol 58 mg/dL [facility] Comment: Desirable HDL: ??greater than 40 mg/dL ?? Note: This HDL assay may give artificially ? low results in patients with liver disease. LDL Cholesterol Calculated 125 mg/dl [facility] Comment: Desirable LDL: ? less than 100 mg/dL Near Optimal/Above Optimal LDL: ??110-129 mg/dL Borderline High LDL: ? 130-159 mg/dL High LDL: ?160-189 mg/dL Very High LDL: ? greater than or equal to ?190 mg/dL Triglycerides 62 mg/dL [facility] Comment: Desirable Triglyceride: ? less than 150 mg/dL Borderline High Triglyceride ??150-199 mg/dL High Triglyceride: ?200-499 mg/dL Very High Triglyceride: ? greater than or equal to ? 5OO mg/dL Alanine Aminotransferase 16 0 - 31 U/L [facility] Albumin Level 4.2 3.5 - 5.0 g/dL [facility] Alkaline Phosphatase 72 39 - 117 U/L [facility] Anion Gap 9(L) 12 - 20 [facility] Aspartate Amino Transferase 20 5 - 31 U/L [facility] Bilirubin Total 0.6 0.0 - 1.0 mg/dL [facility] Blood Urea Nitrogen 13 9 - 16 mg/dL [facility] Calcium 9.1 8.4 - 10.2 mg/dL [facility] Carbon Dioxide 29 22 - 29 mmol/L [facility] Chloride 105 96 - 108 mmol/L [facility] Creatinine, Serum 0.80 0.5 - 1.4 mg/dL [facility] Estimated Glomerular Filt Rate >60 [facility] Comment: NOTE: ??For -Danish individuals, multiply the result ?by . ?? Chronic Kidney Disease: ??Estimated GFR < 60 mL/min/1.73m2 Severe Kidney Disease: ??Estimated GFR < 15 mL/min/1.73m2 Glucose Random 99 60 - 115 mg/dL [facility] Potassium 4.1 3.3 - 5.1 mmol/L [facility] Sodium 139 135 - 145 mmol/L [facility] Total Protein 7.0 6.5 - 8.0 g/dL [facility] 07/30/2021 8:14 AM EDT us Luzmaria Feliz MD HISTORICAL/NON ORDERABLE LABS Final Result [facility] [address] from Last 3 Months or Most Recently Relevant to Health Maintenance [facility] [employer] Care Teams Perl Software Engineer Relationship Specialty Start Date End Date Luzmaria Feliz MD [address] [place] [phone] PCP - General Family Medicine 09/28/18
--- OUTSIDE RECORDS SUMMARY | 2024-11-18 08:11 | XMS_ITS | Encounter Summary ---
Author Organization [employer] Address [address] [facility] 7t [place] [address] Care Team Providers Care Finance Intern Name Role Phone Luzmaria Feliz MD Primary Care Provider [phone] Encounter Details Date Type Department Care Team ([facility] st Contact Info) Description 11/17/2024 2:00 PM EST Office Visit [facility] CHC MED & PEDS [address] [place], [place] [phone] Luzmaria Feliz MD [address] [place] [address] BMI 33.0-33.9,adult (Primary Dx); Heel pain, chronic, right Social History Tobacco Use Types Packs/Day Years [...] AM EDT documented as of this encounter Last Filed Vital Signs Vital Sign Reading [...] Mass Index 33.81 11/17/2024 2:01 PM EST documented in this encounter Plan of Treatment Upcoming Encounters Date Type Department Care Team (Late st Contact Info) Description 01/17/2025 9:45 AM EDT Office Visit [facility] MED & PEDS [address] [place] [address] Luzmaria Feliz MD [address] [place] [address] Scheduled Orders Name Type Priority Associated Diagnoses Orde r Schedule XR Foot 3+ Views Right Imaging Routine Heel pain, chronic, right Expected: 11/17/2024, Expires: 11/17/2025 documented as of this encounter Visit Diagnoses Diagnosis BMI 33.0-33.9,adult- Primary Heel pain, chronic, right documented in this encounter Additional Health Concerns Assessment Noted Time PHQ-9 Depression Total Score: 2 07/14/20 24 9:59 AM EDT documented as of this encounter Care Teams Finance Intern Relationship Specialty Start Date End Date Luzmaria Feliz MD [address] [place] [address] PCP - General Family Medicine 09/28/18 documented as of this encounter
--- OUTSIDE RECORDS SUMMARY | 2024-11-18 08:11 | XMS_ITS | Encounter Summary ---
Author Organization [employer] Address [address] [facility] 7 [place] [address] Care Team Providers Care Net Solutions Architect Name Role Phone Luzmaria Feliz MD Primary Care Provider [phone] Reason for Visit * Reason Onset Date Comments Nurse Triage 11/17/2024 Encounter Details Date Type Department Care Team ([facility] st Contact Info) Description 11/17/2024 Telephone [facility] CHC MED & PEDS [address] [place], [place] [phone] Luzmaria Feliz MD [address] [place] [address] Nurse Triage Social History Tobacco Use Types Packs/Day [...] encounter Miscellaneous Notes * Telephone Encounter - Myriam Payan RN - 11/17/2024 12:30 PM EST called pt to triage, spoke to pt. pt states about 1.5 months duration, right foot pain, getting worse. pt states pain mostly on the bottom of her foot and making ROM or ambulation difficult. pt denies known injury, redness, inability to stand or walk, or other associated symptoms. given appt today with PCP at 2:00 for exam. advised home care: rest, elevate, ice, heat, OTC pain reliever as needed,and call back if worsening or new concerns. pt understands and agrees with plan. insurance verified. Protocol Used: Foot Pain (Adult) Protocol-Based Disposition: See in Office or Video Visit within 3 Days Video visit offer not recorded Positive Triage Question: * Patient wants to be seen * All higher-acuity triage questions were negative Care Advice Discussed: * Reassurance and Education - Foot Pain * Reassurance and Education - Overuse * Foot Pain - Aggravating Factors * Pain Medicines * Reasons To Call Back - Swelling, redness, or fever occur - Severe pain not relieved by pain medicine - Pain lasts over 7 days - You become worse * Telephone Encounter - Geena Walsh - 11/17/2024 11:43 AM EST Symptom: Foot or Ankle Pain and also has some wheezing - Not From Injury Outcome: Schedule an urgent appointment (within 1 hour) or talk to a nurse or provider soon Reason: Trouble walking The caller accepted this outcome. documented in this encounter Plan of Treatment Upcoming Encounters Date Type Department Care Team ([facility] st Contact Info) Description 01/17/2025 9:45 AM EDT Office Visit [facility] CHC MED & PEDS [address] [place] [address] Luzmaria Feliz MD [address] [place] [address] documented as of this encounter Visit Diagnoses Not on filedocumented in this encounter Additional Health Concerns Assessment Noted Time PHQ-9 Depression Total Score: 2 07/14/20 24 9:59 AM EDT documented as of this encounter Care Teams Net Solutions Architect Relationship Specialty Start Date End Date Luzmaria Feliz MD [address] [place] [address] PCP - General Family Medicine 09/28/18 documented as of this encounter
--- OUTSIDE RECORDS SUMMARY | 2024-11-18 08:11 | XMS_ITS | Encounter Summary ---
Author Organization [employer] Address [address] [facility] 7 [place] [address] Care Team Providers Care Biodiesel Plant Operations Engineer Name Role Phone Luzmaria Feliz MD Primary Care Provider [phone] Reason for Visit * Reason Onset Date Comments Nurse Triage 03/12/2023 Encounter Details Date Type Department Care Team ([facility] st Contact Info) Description 03/12/2023 Telephone [facility] CHC MED & PEDS [address] [place], [place] [phone] Luzmaria Feliz MD [address] [place] [address] Nurse Triage Social History Tobacco Use Types [...] suspected to have Coronavirus/COVID-19? No / Unsure 03/13/2023 9:39 AM EDT documented as of this encounter Miscellaneous Notes * Telephone Encounter - Monserrat Alejo RN - 03/12/2023 11:29 AM EDT Triage call with [employer] Paper Production Engineer [place] [id number], Pt reports , I speak tajik . Pt reports constipation last BM 3 days ago and very hard , constipated stool difficult to pass. Pt has been having constipation for two weeks now. Pt has hemorrhoids as well which make it more painful. Pt reports some abdominal cramping, bloating, full feeling. Neg for fever, vomiting. Pt is advised to use sitz bath but, Pt reports unable to sit in water due to endometrial ablation done 02/27. Pt is advised to obtain OTC Milk of Magnesia to start today. Pt agreed with disposition and home care advice. 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 Apt with Dr. Becerril 03/13 @ 1015am. Insurance is verified as active prior to booking. Protocol Used: Constipation (Adult) Protocol-Based Disposition: See in Office or Video Visit Today Positive Triage Question: * Abdomen is more swollen than usual * All higher-acuity triage questions were negative Care Advice Discussed: * Reassurance and Education - Constipation * General Constipation Instructions * High Fiber Diet * Drink Adequate Liquids * Get Into a Rhythm * Enemas * Narcotic Pain Medicine * Reasons To Call Back - Constipation lasts more than 1 week after using Care Advice - Abdomen swelling, vomiting or fever occur - Constant or increasing abdomen pain - You think you need to be seen - You become worse * Step 2 - Use an osmotic laxative if needed * Reassurance and Education - Rectal Pain * Telephone Encounter - Davidson Woodard - 03/12/2023 10:49 AM EDT Symptoms: Constipation, Hair Loss Outcome: Schedule an urgent appointment (within 1 hour) or talk to a nurse or provider soon Reason: Constant stomach pain The caller accepted this outcome Please contact pt at [phone] documented in this encounter Plan of Treatment Upcoming Encounters Date Type Department Care Team (Late st Contact Info) Description 01/17/2025 9:45 AM EDT Office Visit [facility] MED & PEDS [address] [place] [address] Luzmaria Feliz MD [address] [place] [address] documented as of this encounter Visit Diagnoses Not on filedocumented in this encounter Additional Health Concerns Assessment Noted Time PHQ-9 Depression Total Score: 3 10/31/19 23 9:57 AM EST documented as of this encounter Care Teams Biodiesel Plant Operations Engineer Relationship Specialty Start Date End Date Luzmaria Feliz MD [address] [place] [address] PCP - General Family Medicine 09/28/18 documented as of this encounter
--- OUTSIDE RECORDS SUMMARY | 2024-11-18 08:11 | XMS_ITS | Encounter Summary ---
Author Organization [employer] Address [address] [facility] 7 [place] [address] Care Team Providers Care Well Service Pump Equipment Operator Name Role Phone Luzmaria Feliz MD Primary Care Provider [phone] Reason for Visit * Reason Onset Date Comments PA 10/11/2024 Encounter Details Date Type Department Care Team ([facility] Contact Info) Description 10/11/2024 Telephone [facility] CHC MED & PEDS [address] [place], [place] [phone] Luzmaria Feliz MD [address] [place] [address] PA Social History Tobacco Use Types Packs/Day [...] encounter Miscellaneous Notes * Telephone Encounter - Sondra Luo LPN - 10/11/2024 10:04 AM EST poncho Duran administrative underwriter review pt chart for the request below However per MH guideline pt would need to have tried and or failed wegovy or and Oral weight loss medication , administrative underwriter did reach out to Aziza KERN for this administrative underwriter was advise, to contact pt an update. Pt stated will wait for PCP returnfor medication discussion Tc from pt calling to inform a PA is needed for medication Tirzepatide-Weight Management (Zepbound)2.5 MG/0.5ML solution auto-injector * Telephone Encounter - Geena Walsh - 10/11/2024 9:47 AM EST Tc from pt calling to inform a PA is needed for medication Tirzepatide-Weight Management (Zepbound)2.5 MG/0.5ML solution auto-injector documented in this encounter Plan of Treatment Upcoming Encounters Date Type Department Care Team ([facility] st Contact Info) Description 01/17/2025 9:45 AM EDT Office Visit [facility] MED & PEDS [address] [place] [address] Luzmaria Feliz MD [address] [place] [address] documented as of this encounter Visit Diagnoses Not on filedocumented in this encounter Additional Health Concerns Assessment Noted Time PHQ-9 Depression Total Score: 2 07/14/20 24 9:59 AM EDT documented as of this encounter Care Teams Well Service Pump Equipment Operator Relationship Specialty Start Date End Date Luzmaria Feliz MD [address] [place] [address] PCP - General Family Medicine 09/28/18 documented as of this encounter
--- OUTSIDE RECORDS SUMMARY | 2024-11-18 08:11 | XMS_ITS | Encounter Summary ---
Author Organization [employer] Address [address] [facility] 7 [place] [address] Care Team Providers Care Gravity Meter Observer Name Role Phone Luzmaria Feliz MD Primary Care Provider [phone] Reason for Visit * Reason Comments Med Refill Encounter Details Date Type Department Care Team (Late Contact Info) Description 12/24/2022 Refill [facility] CHC MED & PEDS [address] [place], [place] [phone] Luzmaria Feliz MD [address] [place] [address] Social History Tobacco Use Types Packs/Day Years [...] suspected to have Coronavirus/COVID-19? No / Unsure 12/18/2022 11:34 AM EDT documented as of this encounter Plan of Treatment Upcoming Encounters Date Type Department Care Team (Late st Contact Info) Description 01/17/2025 9:45 AM EDT Office Visit [facility] CHC MED & PEDS [address] [place] [address] Luzmaria Feliz MD [address] [place] [address] documented as of this encounter Visit Diagnoses Not on filedocumented in this encounter Additional Health Concerns Assessment Noted Time PHQ-9 Depression Total Score: 3 10/31/19 23 9:57 AM EST documented as of this encounter Care Teams Gravity Meter Observer Relationship Specialty Start Date End Date Luzmaria Feliz MD [address] [place] [address] PCP - General Family Medicine 09/28/18 documented as of this encounter
--- OUTSIDE RECORDS SUMMARY | 2024-11-18 08:11 | XMS_ITS | Encounter Summary ---
Author Organization [employer] Address [address] [facility] 7t [place] [address] Care Team Providers Care Construction Administrative Assistant Name Role Phone Luzmaria Feliz MD Primary Care Provider [phone] Encounter Details Date Type Department Care Team ([facility] st Contact Info) Description 07/03/2023 Abstract [facility] MEDICINE [address] [place] [address] Jenelle Felix Social History Tobacco Use Types Packs/Day Years Used Date Smoking Tobacco: Never Passive Smoke Exposure: Never Smokeless Tobacco: Never Alcohol Use Standard Drinks/Week Comments Never 0 (1 standard drink = 0.6 oz pur e alcohol) Depression Answer Date Recorded Patient Health Questionnaire-9 Score 3 10/31/2022 Housing Stability Answer Date Recorded What is your housing situation today? I have tawnya reeves 07/05/[address] you li ve. Do you have problems with any of the following? None of the above 07/05/2023 Food Insecurity Answer Date Recorded Within the past 12 months, y ou worried that your food would run out before you got money to buy more: Never True 07/05/2023 Within the past 12 months,th e food you bought just didn't last and you didn't have enough money to get more: Never True 04/2023 Transportation Answer Date Recorded In the past 12 months, has l ack of transportation kept you from medical appts, meetings, work or from getting things needed for daily living? No 07/05/2023 Utilities Answer Date Recorded In the past 12 months, has t he electric, gas, oil or water company threatened to shut off services in your home? No 07/05/2023 Depression Answer Date Recorded Patient Health Questionnaire-2 [...] Description 01/17/2025 9:45 AM EDT Office Visit [facility] MED & PEDS [address] [place] [address] Luzmaria Feliz MD [address] [place] [address] documented as of this encounter Procedures Procedure Name Priority Date/Time Associated Diagnosis Comments PAP/HPV Routine 04/01/2022 documented in this encounter Results * Pap Smear (04/01/2022) Pap Negative for intraephithelial lesion or malignancy Negative for intraephithelial lesion or malignancy, Other HPV Undetected us Historical Provider HEALTH MAINTENANCE Final Result documented in this encounter Visit Diagnoses Not on filedocumented in this encounter Additional Health Concerns Assessment Noted Time PHQ-9 Depression Total Score: 3 10/31/19 23 9:57 AM EST documented as of this encounter Care Teams Construction Administrative Assistant Relationship Specialty Start Date End Date Luzmaria Feliz MD [address] [place] [address] PCP - General Family Medicine 09/28/18 documented as of this encounter
--- OUTSIDE RECORDS SUMMARY | 2024-11-18 08:12 | XMS_ITS | Encounter Summary ---
Author Organization [employer] Address [address] [facility] 7t [place] [address] Care Team Providers Care Dietitian Helper Name Role Phone Luzmaria Feliz MD Primary Care Provider [phone] Reason for Visit * Reason Comments Med Refill Encounter Details Date Type Department Care Team ([facility] st Contact Info) Description 12/30/2022 Refill [facility] CHC MED & PEDS [address] [place], [place] [phone] Luzmaria Feliz MD [address] [place] [address] Social History Tobacco Use Types Packs/Day Years [...] suspected to have Coronavirus/COVID-19? No / Unsure 12/29/2022 9:57 AM EDT documented as of this encounter Miscellaneous Notes * Telephone Encounter - Aziza Shabazz RN - 12/31/2022 2:25 PM EDT Already sent on 12.24.22 documented in this encounter Plan of Treatment Upcoming Encounters Date Type Department Care Team ([facility] st Contact Info) Description 01/17/2025 9:45 AM EDT Office Visit [facility] CHC MED & PEDS [address] [place] [address] Luzmaria Feliz MD [address] [place] [address] documented as of this encounter Visit Diagnoses Not on filedocumented in this encounter Additional Health Concerns Assessment Noted Time PHQ-9 Depression Total Score: 3 10/31/19 23 9:57 AM EST documented as of this encounter Care Teams Dietitian Helper Relationship Specialty Start Date End Date Luzmaria Feliz MD [address] [place] [address] PCP - General Family Medicine 09/28/18 documented as of this encounter
== END 2024-11-18 08:07 | disposition home or self-care (01) ==
LOC: HO.XRAY 08:06
PROVIDERS: PCP Pediatrics; Visit Provider Pediatrics
DX: M79.671 Pain in right foot (principal); G89.29 Other chronic pain
CPT/HCPCS: 73630

== ENCOUNTER → 2024-11-18 08:10 | Outpatient (BNV) | payer MEDICAID, SELFPAY | PROVIDERS: PCP Pediatrics; Visit Provider Radiology Diagnostic Radiology | DX: M79.671 Pain in right foot (principal) | CPT/HCPCS: 73630 ==

== ENCOUNTER 2025-02-01 13:14 | Outpatient (REF) | payer OTHER, SELFPAY ==
--- NOTE | ~2025-02-01 | US_ITS ---
CLINICAL HISTORY: N93.9 - Abnormal uterine and vaginal bleeding, unspecified Transabdominal and transvaginal pelvic ultrasound Comparison: None Findings: Uterus 9.1 x 3.8 x 5.4 cm. Endometrium 7 mm. Multiple fibroids, largest 2.1 cm. Free fluid noted in cervical endometrium. No significant free fluid in cul-de-sac. Right ovary 2.8 x 1.7 x 2.5 cm. Left ovary 3.1 x 1.9 x 1.7 cm. No significant focal abnormality. Impression: Uterine fibroids, otherwise unremarkable This document has been electronically signed by: Narciso Nunez MD on 02/01/2025 18:35:30
--- OUTSIDE RECORDS SUMMARY | 2025-02-01 14:29 | XMS_ITS | Data Portability ---
Author Organization [employer] [facility] [id number] Address [address] [place] [address] Assessment No assessment recorded. Plan of Treatment [...] SNOMED-CT Code Diagnosis ICD10 Code Diagnosis Note [id number] KELLIE BRIDGES [address] [address] 12/12/2022 10:53:41 12/30/2022 19:47:00 Left without being seen [id number] 9102 Z53.21 Health Concerns Section Related Observation LastModified by Organization Detai ls LastModified Time None Recorded Concern Status LastModified by Organization Details LastModified Time None Recorded Advance Directives Directive None Recorded Payers Insurance Date Sequence Insurance Name Policy Number Policy Ibarra Covered Member ID Ibarra Member ID Guarantor Name 02/09/2023 1 [place] [facility] Stacey Dasilva [id number] Stacey Dasilva OBGyn Episode No OBEpisode recorded.
== END 2025-02-01 13:15 | disposition home or self-care (01) ==
LOC: HO.US 13:14
PROVIDERS: PCP Pediatrics; Visit Provider Obstetrics & Gynecology
DX: N93.9 Abnormal uterine and vaginal bleeding, unspecified (principal)
CPT/HCPCS: 76830; 76856

== ENCOUNTER → 2025-02-01 13:16 | Outpatient (BNV) | payer OTHER, SELFPAY | PROVIDERS: PCP Pediatrics; Visit Provider Radiology Diagnostic Radiology | DX: D25.9 Leiomyoma of uterus, unspecified (principal) | CPT/HCPCS: 76830; 76856 ==

== ENCOUNTER 2025-03-14 11:30 | Outpatient (REF) | payer OTHER, SELFPAY ==
--- NOTE | ~2025-03-14 | US_ITS ---
EXAMINATION: US LEFT LOWER ANTERIOR ABDOMEN WALL, LIMITED/FOLLOW UP CLINICAL INFORMATION: Palpable lump. COMPARISON: Correlated to CT abdomen and pelvis dated November 19, 2022. TECHNIQUE: Real-time ultrasound of the region of concern, left lower lateral abdomen wall, using a linear transducer with grayscale and color Doppler technique. FINDINGS: There is an irregularly-shaped, 1.2 x 0.8 x 0.5 cm anechoic abnormality with the internal isoechoic abnormality without flow on color Doppler interrogation centered beneath the skin of the left midline lower abdomen wall. US/US pelvic limited IMPRESSION: 1.2 x 0.8 x 0.5 cm lesion beneath the skin the left midline lower abdomen wall. Electronically signed by: Hai Disla MD 03/14/2025 12:38 PM EDT
--- OUTSIDE RECORDS SUMMARY | 2025-03-14 13:07 | XMS_ITS | Encounter Summary ---
Author Organization [employer] Address [address] [facility] [address] [place] [address] Care Team Providers Care Website Optimization Strategist Name Role Phone Luzmaria Feliz MD Primary Care Provider [phone] Encounter Details Date Type Department Care Team ([facility] st Contact Info) Description 07/03/2023 Abstract [facility] MEDICINE [address] [place] [address] Jenelle Felix Social History Tobacco Use Types [...] t he electric, gas, oil or water [employer] threatened to shut off services in your [...] Care Team (Late st Contact Info) Description 03/22/2025 9:15 AM EDT Office Visit [facility] MED & PEDS [address] [place], [place] [phone] Luzmaria Feliz MD [address] [place], [place] [phone] documented as of this encounter Procedures Procedure Name Priority Date/Time Associated Diagnosis Comments PAP/HPV Routine 04/01/2022 documented in this encounter Results * Pap Smear (04/01/2022) Pap Negative for intraephithelial lesion or malignancy Negative for intraephithelial lesion or malignancy, Other HPV Undetected Historical Provider HEALTH MAINTENANCE Final Result documented in this encounter Visit Diagnoses Not on filedocumented in this encounter Additional Health Concerns Assessment Noted Time PHQ-9 Depression Total Score: 3 10/31/19 23 9:57 AM EST documented as of this encounter Care Teams Website Optimization Strategist Relationship Specialty Start Date End Date Luzmaria Feliz MD [address] [place] [address] PCP - General Family Medicine 09/28/18 documented as of this encounter
== END 2025-03-14 11:31 | disposition home or self-care (01) ==
LOC: HO.US 11:30
PROVIDERS: PCP Pediatrics; Visit Provider Pediatrics
DX: R22.2 Localized swelling, mass and lump, trunk (principal)
CPT/HCPCS: 76857

== ENCOUNTER → 2025-03-14 11:33 | Outpatient (BNV) | payer OTHER, SELFPAY | PROVIDERS: PCP Pediatrics; Visit Provider Radiology Diagnostic Radiology | DX: R22.2 Localized swelling, mass and lump, trunk (principal) | CPT/HCPCS: 76857 ==

== ENCOUNTER 2025-05-11 08:12 | Outpatient (AMB) | payer OTHER, SELFPAY ==
--- NOTE | 2025-05-11 08:13 | MHC.OFFVIS ---
Intake Visit Reasons: ultrasound results Medical Clinic Manager Required: No Information Interpreted: non-clinical & clinical Allergies No Known Allergies (No Known Allergies*) Allergy (Verified 05/11/25 08:13) HPI Comments Details: The patient is presenting for follow-up to discuss the results of her abnormal uterine bleeding workup and options of treatment. The following workup was done.: H&H= 14.1/40.9 TSH, hCG, GC and chlamydia were negative. FSH/LH 30.7/9.2 Co testing was done was in 04/18 was negative Mammogram was ordered but not scheduled yet Pelvic ultrasound showed the following: Uterus 9.1 x 3.8 x 5.4 cm. Endometrium 7 mm. Multiple fibroids, largest 2.1 cm. Free fluid noted in cervical endometrium. No significant free fluid in cul-de-sac. Right ovary 2.8 x 1.7 x 2.5 cm. Left ovary 3.1 x 1.9 x 1.7 cm. No significant focal abnormality. Impression: Uterine fibroids, otherwise unremarkable [facility] Medical History (Updated 05/11/25 @ 08:57 by Holden Person MD) Sterilization Hypothyroid Hypertension Surgical History (Updated 09/07/24 @ 09:24 by Holden Person MD) History of endometrial ablation History of 3 sections History of right breast biopsy (06/29/19) History of left breast biopsy (11/2017) History of abdominoplasty (11/13/20) History of augmentation of both breasts (11/13/20) Family History Mother Hypertension Pulmonary embolism Social History Household Members: Spouse Housing: Apartment Alcohol intake: never Patient Tobacco Use Status: Never used Tobacco Review of Systems Const All systems reviewed & are unremarkable except as noted in HPI and below Reports as per HPI and Reports no additional complaints GI Reports no additional complaints Reports no additional complaints Telehealth Telehealth Telehealth Platform: Telephone Location of provider rendering services: practice address Location of patient: address on file Patient Identification confirmed using: Name, : Yes Telehealth method: video Patient verbally consented to treatment: Yes Patient verbally consented to billing insurance company: Yes Patient informed of any privacy concerns related to visit: Yes Minutes spent on Phone/Video with Pt.: 3 Assessment & Plan Assessment & Plan (1) Abnormal uterine bleeding: Comment: Status post [employer]Sure endometrial ablation Code(s): N93.9 - Abnormal uterine and vaginal bleeding, unspecified Category: Medical Plan: Discussed with the patient the results the workup done Recommend screening mammogram and EMB to be scheduled deuce (2) Uterine myoma: Code(s): D25.9 - Leiomyoma of uterus, unspecified Category: Medical Plan: Discussed with the patient the findings on pelvic ultrasound & the risk of myosarcoma; in addition reviewed with the patient that malignancy and pre malignancy cannot be ruled out without hysterectomy for pathological evaluation ; furthermore, explained to the patient the limitation of pelvic ultrasound and endometrial biopsy in the setting. Discussed with the patient the options of treatment including expectant management versus hysterectomy; the pros and cons, risks benefits of each approach were discussed with the patient including the fact that in cases of myosarcoma, surgical treatment can lead to early diagnosis and positively affects the prognosis; after further discussion, the patient decided to proceed with expectant management. Will repeat pelvic ultrasound periodically. Instructions given to patient to call in case any of the following occurs: pressure symptoms, abnormal uterine bleeding, pelvic pain; and to schedule a six-months pelvic ultrasound (order placed) and a follow-up appointment . All questions answered, the patient verbalized understanding and agreed with the plan . I spent a total of 20 minutes reviewing the chart, talking to the patient via video and documenting in the medical record. Orders: Orders US pelvic and transvaginal 4 Months D25.9 - Leiomyoma of uterus, unspecified Coding Level of Care Code Tele Est Pt Level 3 (32873) Diagnoses Abnormal uterine bleeding N93.9 Uterine myoma D25.9
--- OUTSIDE RECORDS SUMMARY | 2025-05-11 08:16 | XMS_ITS | Encounter Summary ---
Author Organization [employer] Address [address] [place] [address] Care Team Providers Care Furniture Mover Driver Name Role Phone Luzmaria Feliz MD Primary Care Provider [phone] Encounter Details Date Type Department Care Team ([facility] st Contact Info) Description 07/03/2023 Abstract [facility] [address] [place] [address] Jenelle Felix Social History Tobacco Use Types [...] t he electric, gas, oil or water 2-Observe threatened to shut off services in your [...] Care Team (Late st Contact Info) Description 05/24/2025 11:00 AM EDT Office Visit [facility] [address], [place] [id number] Luzmaria Feliz MD [address] [place] [address] documented as of this encounter Procedures Procedure [...] as of this encounter Care Teams Furniture Mover Driver Relationship Specialty Start Date End Date Luzmaria Feliz MD [address] [place] [address] PCP - General Family Medicine 09/28/18 documented as of this encounter
== END 2025-05-11 09:13 | disposition home or self-care (01) ==
LOC: HO.HWS 08:12
PROVIDERS: PCP Pediatrics; Visit Provider Obstetrics & Gynecology
DX: N93.9 Abnormal uterine and vaginal bleeding, unspecified (principal); D25.9 Leiomyoma of uterus, unspecified
CPT/HCPCS: 99213